=== PATIENT | male | born 1965 | race Caucasian/White ===

== ENCOUNTER 2017-06-01 07:30 | Inpatient (IN) | payer MEDICARE ==
--- NOTE | 2017-05-24 12:11 | HP ---
HISTORY AND PHYSICAL: DATE OF SURGERY: 06/01/17 DATE OF OFFICE VISIT: 05/22/17 SURGEON: Michelle Escobar MD.* (DICTATED BY MARY ALLEN) PROCEDURE: Left total knee arthroplasty. CHIEF COMPLAINT: Left knee pain. HISTORY OF PRESENT ILLNESS: Mr. Neff is a 52-year-old gentleman with complaints of left knee pain secondary to endstage osteoarthritis. He has failed conservative management and has elected to proceed with a left total knee arthroplasty, which is scheduled for 06/01/[address] Escobar. PAST MEDICAL HISTORY: Sleep apnea, hypertension, diabetes, and high cholesterol. PAST SURGICAL HISTORY: Multiple low back surgeries, hernia repair, tonsillectomy, right total knee arthroplasty, and a septoplasty. CURRENT MEDICATIONS: 1. Ipratropium bromide/albuterol sulphate inhaler. 2. Wellbutrin. 3. Cyclobenzaprine 4. Losartan potassium 100 mg daily. 5. Metformin 500 mg 2 tablets, dinner, 1 tablet with breakfast. 6. Famotidine 20 mg twice daily. 7. Metoprolol 50 mg daily. 8. Atorvastatin calcium 20 mg at bedtime. 9. Amlodipine 10 mg daily. 10. Morphine sulfate. 11. Aspirin 81 mg daily. 12. Multivitamin. 13. [place] 10/325 as needed. ALLERGIES: No known drug allergies. FAMILY HISTORY: Family history of diabetes, hypertension and cancer. SOCIAL HISTORY: This is a 52-year-old gentleman lives with a roommate, denies use of drugs. He does smoke. He is in the process of quitting. He states he is down to approximately 6 cigarettes a day, but he smokes for the last 30 years. REVIEW OF SYSTEMS: A complete 14-point review of systems was reviewed with the patient was positive for diabetes and sleep apnea. He denies history of DVT, PE , hepatitis C, or HIV. PHYSICAL EXAMINATION GENERAL: Well developed, well nourished in no acute distress. VITAL SIGNS: He stands 6 feet tall, weighs 225 pounds. Blood pressure 146/84, his heart rate is 80. HEENT: Normocephalic, atraumatic. NECK: Supple. No palpable lymph nodes. PULMONARY: Lungs are clear to auscultation bilaterally. CARDIAC: Regular rate and rhythm. Strong S1 and S2. ABDOMEN: Soft, nontender, nondistended. NEUROLOGICAL: Alert and oriented x3. MUSCULOSKELETAL: Left lower extremity, the skin is intact. There are no open wounds or abrasions. He has some moderate joint effusion and tenderness over the medial and lateral joint line, 10 to 120 degrees of flexion with patellofemoral crepitus, 2+ dorsalis pedis pulses. Intact sensation distally with 5/5 lower extremity strength. ASSESSMENT AND PLAN: Ms. Neff is a 52-year-old gentleman with endstage osteoarthritis of the left knee. He has failed conservative management and has elected to proceed with a left total knee arthroplasty which is scheduled for with Dr. Escobar. Dr. Escobar discussed the risks and benefits of the surgery at today's visit. All of his questions were answered. No medication was sent to his pharmacy today since he currently has a prescription for morphine and [place]. He will follow with Dr. Escobar 2 weeks after the surgery. MARY ALLEN [id number]/[facility] #: [id number] [place]
[~2017-06-01 07:30] MED LIST: Buffered Lidocaine 0.9% SYRIN* 5 ML/SYR SYRINGE INTRADERM ONE; DiMENhydriNATE IV* 50 MG/ML VIAL IV PUSH PRN; Famotidine IV* 10 MG/ML 2 ML (20 mg) IV ONE; Morphine INJ* 2 MG/ML 1 ML CARPUJECT IV PRN; PROCHLORPERAZINE INJ 5 MG/ML 2 ML VIAL IV PRN
[2017-06-01] MEDS ORDERED: Morphine INJ* 2 MG/ML 1 ML CARPUJECT IV PRN (11:39)
[2017-06-01] MEDS ORDERED: Ondansetron INJ* 2 MG/ML VIAL IV PRN (11:39)
[2017-06-01] MEDS ORDERED: Acetaminophen TAB* 325 MG PO PRN (11:39)
[2017-06-01] MEDS ORDERED: oxyCODONE/Acetamin 5/325 MG* TAB PO PRN (11:39)
[2017-06-01] MEDS ORDERED: Bisacodyl SUPP* 10 MG SUPP PR PRN (11:39)
[2017-06-01] MEDS ORDERED: diPHENhydraMINE IV* 50 MG/ML 1 ml VIAL (BENADRYL) IV PRN (11:39)
[2017-06-01] MEDS ORDERED: Polyethylene Glycol 3350* 17 GM PACKET PO PRN (11:39)
[2017-06-01] MEDS ORDERED: Famotidine IV* 10 MG/ML 2 ML (20 mg) ONE (11:49)
[2017-06-01] MEDS ORDERED: ceFAZolin 1 GM ADVAN(*) 1 GM ADDV.VIAL IVPB ONE (11:50)
[2017-06-01] MEDS ORDERED: Buffered Lidocaine 0.9% SYRIN* 5 ML/SYR SYRINGE ONE (11:50)
[2017-06-01] MEDS ORDERED: ceFAZolin 2 GM PREMIX (*) 2 GM/50 ML BAG IVPB ONE (11:50)
[2017-06-01] MEDS ORDERED: ceFAZolin 1 GM VIAL(*) 1 GM in NS 0.9% 50 ML* 50 ML IVPB SCH (12:00)
[2017-06-01] MEDS ORDERED: fentaNYL* 50 MCG/ML 5 ML VIAL (250 MCG VIAL) ONE (12:08)
[2017-06-01] MEDS ORDERED: KETAMINE HCL* 50 MG/ML 10 ML VIAL ONE (12:08)
[2017-06-01] MEDS ORDERED: Midazolam* 1 MG/ML 10 ML VIAL (10 MG) ONE (12:08)
[2017-06-01] MEDS ORDERED: Metoprolol Tartrate TAB* 25 MG ONE (12:19)
[2017-06-01] MEDS ORDERED: Morphine INJ* 10 MG/ML 1 ML CARPUJECT ONE ×3 (13:02→15:59)
[2017-06-01] MEDS ORDERED: Propofol* 10 MG/ML 20 ML BTL IV PUSH ONE (14:45)
[2017-06-01] MEDS ORDERED: Lidocaine 2% PF * 5 ML VIAL ONE (14:45)
[2017-06-01] MEDS ORDERED: Bupivacaine 0.5% SDV PF* 30 ML VIAL ONE (14:45)
[2017-06-01] MEDS ORDERED: Bupivacaine 0.25% SDV* 30 ML ONE (14:45)
[2017-06-01] MEDS ORDERED: Labetalol IV* 5 MG/ML 20 ML VIAL ONE (15:00)
[2017-06-01] MEDS ORDERED: fentaNYL* 50 MCG/ML 2 ML VIAL (100 MCG VIAL) ONE ×2 (15:59→17:45)
[2017-06-01] MEDS: fentaNYL* 50 MCG/ML 2 ML VIAL (100 MCG VIAL) IV PRN ×3 (16:02→18:09)
--- NOTE | 2017-06-01 17:08 | RAD ---
INDICATION: Left total knee replacement COMPARISON: May 22, 2017 TECHNIQUE: AP and lateral views were obtained. FINDINGS: There is interval left knee arthroplasty. Both femoral and tibial components appear well seated. There is no overlying cooling jacket. IMPRESSION: POSTOPERATIVE LEFT TOTAL KNEE REPLACEMENT.
[2017-06-01] MEDS ORDERED: Dextrose 50% Syringe 50 ML* 25 GM/50 ML SYRINGE IV PUSH PRN (18:55)
[2017-06-01] MEDS ORDERED: Morphine INJ* 2 MG/ML 1 ML SYRINGE (TWO MG - NEW SYRINGE VERSION) ONE (19:41)
--- NOTE | 2017-06-01 20:45 | CONS ---
CONSULTATION REPORT: DATE OF CONSULTATION: 06/01/17 CONSULTING PHYSICIAN: uT Dawn MD. PRIMARY CARE PHYSICIAN: Essie Cummings NP. PRIMARY ORTHOPEDIC SURGEON: Dr. Escobar. REASON FOR CONSULT: Medical comorbidity and management for a left total knee replacement surgery patient. HISTORY OF PRESENT ILLNESS: James Neff is a 52-year-old gentleman, PMH as below, who presented to Dr. Escobar's service for left total knee replacement surgery. Course was complicated by needle stick injury reportedly. The patient is currently quite sedated from perioperative anesthesia and unable to give a clear history other than the data involving his septoplasty 20 years ago. Does attest that he is in some degree of pain at the moment. PAST MEDICAL HISTORY: 1. Non-insulin dependent diabetes mellitus. 2. Hypertension. 3. Hyperlipidemia. 4. Formerly diagnosed with sleep apnea. 5. Status post tonsillectomy 20 years ago, which he states has resolved his condition, though no followup sleep studies since that time. PAST SURGICAL HISTORY: 1. Multiple low back surgeries. 2. Hernia repair. 3. Tonsillectomy. 4. Right total knee arthroscopy. 5. Septoplasty. HOME MEDICATIONS: Include per the chart: 1. Wellbutrin. 2. Flexeril. 3. Losartan 100 mg daily. 4. Metformin 500 mg p.o. with dinner and one tablet with breakfast. 5. Pepcid 20 mg b.i.d. 6. Metoprolol 50 mg daily. 7. Atorvastatin 20 mg q.h.s. 8. Amlodipine 10 mg daily. 9. Morphine sulfate. 10. Aspirin 81 mg daily. 11. Multivitamin as needed. 12. Ipratropium bromide/albuterol sulfate inhaler. ALLERGIES: No known drug allergies. FAMILY HISTORY: Diabetes, hypertension, and cancer. SOCIAL HISTORY: Reportedly living with roommate. Smokes 1 pack per day per chart, although more recently decreased to 6 cigarettes a day. Smokes for 30 years. REVIEW OF SYSTEMS: Not obtainable in current state. PHYSICAL EXAMINATION: General Appearance: No acute distress. Sleepy, arousable to a loud voice but then nodding off quickly in the setting of perioperative anesthesia. Vital Signs: Blood pressure 121/87, heart rate 85, saturating 97%, respiratory rate 16 on 10 L nasal cannula. HEENT: Normocephalic, atraumatic. Pulmonary: Anteriorly clear to auscultation bilaterally. No wheezing, rales or rhonchi. Cardiovascular: Regular rate and rhythm. No murmurs, rubs, or gallops. Abdomen: Soft, nontender. Obese. Extremities: Warm and well perfused. No peripheral edema. Neurologic: Sedated. Skin: No rashes. No lesions. Extremities: Also includes brace on the left knee and leg. LABORATORY DATA: No current labs other than glucose 117. ASSESSMENT AND PLAN: The patient is a 52-year-old male with past medical history, current smoker, [id number] diabetes mellitus, hypertension, hyperlipidemia, presenting without complication from a left total knee repair. For his diabetes management, we will put him on sliding scale insulin q.a.c., q.h.s., with [id number] testing. Hold his metformin 1000 mg at night and 500 mg with breakfast. For his high blood pressure, currently well controlled, we will continue his metoprolol tartrate 50 mg q.a.m. in the morning. For DVT prophylaxis, orthopedic services started warfarin 6 mg daily with enoxaparin 40 mg daily bridging. Continue his atorvastatin 20 mg daily for hyperlipidemia. Defer amlodipine 10 mg to morning. The patient denies current obstructive sleep apnea and apparently did not follow with recommendations on 03/22/17 visit to follow up with sleep study. Of note , one of the surgeons may have had a fingerstick in the OR and hepatitis B, C, HIV testing has taken place. The patient will need to continue PT/OT. Should be on nicotine patch for his 6 cigarettes a day smoking habit. [id number]/[facility] #: [id number] [facility]
[2017-06-01 20:55] LABS: Rapid HIV INT CONT QC Line Present; Rapid HIV Kit Lot# H046007
[2017-06-01] MEDS ORDERED: metFORMIN* 500 MG TAB PO SCH (21:00)
[2017-06-01] MEDS ORDERED: Warfarin TAB(*) 6 MG PO ONE (21:30)
[2017-06-01] MEDS: Atorvastatin* 20 MG TAB PO SCH (22:04)
[2017-06-01] MEDS: Insulin LISPRO* 1 UNITS UNIT SUBCUT SCH (22:26)
[2017-06-01] MEDS: Docusate CAP* 100 MG PO SCH (22:37)
[2017-06-01] MEDS: Magnesium Hydroxide LIQ* 30 ML UDC PO SCH (22:38)
[2017-06-01] MEDS: ceFAZolin 1 GM in Dextrose (*) 1 GM/50 ML BAG IVPB SCH (22:44)
[2017-06-01] MEDS ORDERED: Morphine INJ* 10 MG/ML 1 ML CARPUJECT IV PRN (23:00)
[2017-06-02] MEDS: Morphine INJ* 2 MG/ML 1 ML SYRINGE (TWO MG - NEW SYRINGE VERSION) IV PRN ×4 (00:56→11:47)
[2017-06-02] MEDS: oxyCODONE/Acetamin 5/325 MG* TAB PO PRN ×5 (05:18→23:28)
[2017-06-02 05:41] LABS: Hematocrit 34 % (42-52); Hemoglobin 11.4 g/dl (14.0-18.0)
[2017-06-02 05:56] LABS: BUN/Creatinine Ratio 16.9 (8-20); EGFR African American 165.9 (>60); Potassium 3.7 mmol/L (3.5-5.0)
[2017-06-02] MEDS: ceFAZolin 1 GM in Dextrose (*) 1 GM/50 ML BAG IVPB SCH ×3 (06:18→23:29)
[2017-06-02] MEDS: amLODIPine TAB* 5 MG PO SCH (07:29)
[2017-06-02] MEDS: Nicotine PATCH 21 MG/24 HR* PATCH TRANSDERM SCH (07:29)
[2017-06-02] MEDS: Magnesium Hydroxide LIQ* 30 ML UDC PO SCH ×2 (07:29→20:37)
[2017-06-02] MEDS: Metoprolol Tartrate TAB* 50 mg PO SCH (07:29)
[2017-06-02] MEDS: Docusate CAP* 100 MG PO SCH ×2 (07:29→20:37)
[2017-06-02] MEDS: Losartan TAB* 25 MG PO SCH (07:29)
[2017-06-02] MEDS: Famotidine TAB* 20 MG PO SCH (07:29)
[2017-06-02] MEDS: Vitamin THERAPEUTIC TAB PO SCH (07:30)
[2017-06-02] MEDS: Insulin LISPRO* 1 UNITS UNIT SUBCUT SCH ×4 (08:13→20:45)
[2017-06-02] MEDS: Morphine TAB Extended Release (*) 30 MG TAB.ER PO SCH ×2 (08:13→20:43)
[2017-06-02] MEDS: Simethicone TAB* 80 MG TAB.CHEW PO PRN ×2 (08:14→20:54)
[2017-06-02] MEDS: Cyclobenzaprine TAB* 10 MG PO PRN (08:15)
[2017-06-02] MEDS ORDERED: Nicotine PATCH 21 MG/24 HR* PATCH SCH (09:00)
[2017-06-02] MEDS: Enoxaparin(*) 40 MG/0.4 ML SYR SUBCUT SCH (11:42)
--- NOTE | 2017-06-02 12:20 | PN ---
Progress Note - Progress Note Date of Service: 06/02/17 SOAP: Subjective: 52 y/o male s/p l TKA 06/[address] Escobar. Patient complains of extreme pain in L knee, medications changed this morning. Patient resting upon arrival into room. Worked poorly with PT this AM, states he "almost punched her". Patient educated not appropriate behavior. VSS, afebrile. Objective: General- Well appearing, NAD, resting comfortably in chair, AO MSK- Surgical dressing intact, drain removed, no odor, drainage noted, + DF/PF b/l, minimal edema b/l LEs, neg homans b/l, SITLT b/l. Vital Signs Temp 98.3 F 06/02/17 07:43 Pulse 96 06/02/17 07:43 Resp 16 06/02/17 11:47 BP 173/95 06/02/17 07:43 Pulse Ox 96 06/02/17 07:43 Intake & Output 06/01/17 06/02/17 06/02/17 18:59 06:59 18:59 Intake Total 2100 1748 811 Output Total 300 1975 500 Balance 1800 -227 311 Weight 128.367 kg Intake: IV Fluids 2100 1038 233 3 GM ANCEF 100 ABX - CEFAZOLIN 58 LR 2000 980 233 IVPB 58 ABX - CEFAZOLIN 58 Oral 710 520 Output: Urine 300 500 [place] 1975 Assessment: Stable 52 y/o male s/p l TKA 06/[address] Escobar. Plan: - Pain medication- Regimen changed this AM, with morphine ER 30mg BID, oxycodone, flexeril. Continue to monitor for improvement, may need to change if pain continues - DVT prophyl- INR subtherap, 8mg coumadin tonight, continue lovenox - Continue to work with PT - Rehabiliation placement recs sent by for possible rehab Monday otherwise home over depending on PT Active Medications Generic Name Dose Route Start Last Admin Trade Name Freq PRN Reason Stop Dose Admin Acetaminophen 650 mg 06/01/17 11:39 06/01/17 22:02 Tylenol Tab* PO 650 mg Q4H PRN Administration FEVER/PAIN Amlodipine Besylate 10 mg 06/02/17 09:00 06/02/17 07:29 Norvasc Tab* PO 10 mg QAM DAVID Administration Atorvastatin Calcium 20 mg 06/01/17 18:00 06/01/17 22:04 Lipitor* PO Not Given QPM DAVID Bisacodyl 10 mg 06/01/17 11:39 Dulcolax Supp* [place] DAILY PRN constipation Cyclobenzaprine HCl 10 mg 06/02/17 07:35 06/02/17 08:15 Flexeril Tab* PO 10 mg TID PRN Administration SPASMS - MUSCLE Dextrose 12.5 gm 06/01/17 18:55 D50w Syringe 50 Ml* IV PUSH .FOR FS < 60 - SS PRN FS < 60 Diphenhydramine HCl 25 mg 06/01/17 11:39 Benadryl Iv* IV Q6H PRN itching Docusate Sodium 100 mg 06/01/17 21:00 06/02/17 07:29 Colace Cap* PO 100 mg BID DAVID Administration Enoxaparin Sodium 40 mg 06/02/17 12:00 06/02/17 11:42 Lovenox(*) SUBCUT 40 mg Q24H DAVID Administration Famotidine 20 mg 06/02/17 09:00 06/02/17 07:29 Pepcid Tab* PO 20 mg QAM DAVID Administration Lactated Ringer's 1,000 mls @ 100 mls/hr 06/01/17 12:00 06/02/17 06:21 Lactated Ringers 1000 Ml Bag* IV 100 mls/hr PER RATE DAVID Administration Cefazolin Sodium/Dextrose 1 gm in 50 mls @ 200 mls/hr 06/01/17 22:30 06:18 Kefzol 1 Gm In Dextrose Duplex (*) IVPB 200 mls/hr 0630,1430,2230 DAVID Administration Insulin Human Lispro 0 units 06/01/17 21:00 06/02/17 08:13 Humalog* SUBCUT 3 units ACHS DAVID Administration Protocol Lactulose 30 ml 06/01/17 21:00 06/02/17 07:29 Lactulose* PO 30 ml BID DAVID Administration Losartan Potassium 100 mg 06/02/17 09:00 06/02/17 07:29 Cozaar Tab* PO 100 mg QAM DAVID Administration Magnesium Hydroxide 30 ml 06/01/17 21:00 06/02/17 07:29 Milk Of Magnesia Liq* PO 30 ml BID DAVID Administration Metoprolol Tartrate 50 mg 12/01/17 09:00 06/02/17 07:29 Lopressor Tab* PO 50 mg QAM DAVID Administration Morphine Sulfate 2 mg 06/01/17 22:11 06/02/17 11:47 Morphine Inj (Syringe)* IV 2 mg Q2H PRN Administration PAIN Morphine Sulfate 30 mg 06/02/17 08:00 06/02/17 08:13 Ms Contin(*) PO 30 mg Q12H DAVID Administration Multivitamins 1 tab 06/02/17 09:00 06/02/17 07:30 Theragran Tab* PO 1 tab DAILY DAVID Administration Nicotine 1 patch 06/02/17 09:00 06/02/17 07:29 Nicotine Patch 21 Mg/24 Hr* TRANSDERM 1 patch DAILY DAVID Administration Ondansetron HCl 4 mg 06/01/17 11:39 Zofran Inj* IV Q6H PRN nausea Oxycodone HCl 10 mg 06/01/17 11:39 Roxycodone Tab* PO Q4H PRN PAIN - MODERATE TO SEVERE Oxycodone/Acetaminophen 1 tab 06/01/17 11:39 Percocet 5/325 Tab* PO Q4H PRN PAIN Oxycodone/Acetaminophen 2 tab 06/01/17 11:39 06/02/17 09:31 Percocet 5/325 Tab* PO 2 tab Q4H PRN Administration PAIN Pharmacy Profile Note 1 note 06/02/17 17:00 Coumadin Daily Reminder* FOLLOW UP [facility] Pharmacy Profile Note 1 note 06/01/17 21:55 Nicotine Patch Removal Note* PATCH OFF [facility] Polyethylene Glycol/Electrolytes 17 gm 06/01/17 11:39 Miralax* PO DAILY PRN Constipation Simethicone 80 mg 06/02/17 08:02 06/02/17 08:14 Mylicon Tab* PO 80 mg QID PRN Administration NOT STATED
--- NOTE | 2017-06-02 14:30 | PN ---
Subjective Date of Service: 06/02/17 Interval History: Patient resting when entered room but complains of 10/10 knee pain. Also complains of abdominal pain and bloating, passing large amounts of flatus with moderate relief. Urinating without difficulty. No complaints of CP, SOB, N/V, F/ C or other pain. Family History: Unchanged from Admission Social History: Unchanged from Admission Past Medical History: Unchanged from Admission Objective Active Medications: Acetaminophen (Tylenol Tab*) 650 mg PO Q4H PRN PRN Reason: FEVER/PAIN Last Admin: 06/01/17 22:02 Dose: 650 mg Amlodipine Besylate (Norvasc Tab*) 10 mg PO QAM [facility] Last Admin: 06/02/17 07:29 Dose: 10 mg Atorvastatin Calcium (Lipitor*) 20 mg PO QPM [facility] Last Admin: 06/01/17 22:04 Dose: Not Given Bisacodyl (Dulcolax Supp*) 10 mg [place] DAILY PRN PRN Reason: constipation Cyclobenzaprine HCl (Flexeril Tab*) 10 mg PO TID PRN PRN Reason: SPASMS - MUSCLE Last Admin: 06/02/17 08:15 Dose: 10 mg Dextrose (D50w Syringe 50 Ml*) 12.5 gm IV PUSH .FOR FS < 60 - SS PRN PRN Reason: FS < 60 Diphenhydramine HCl (Benadryl Iv*) 25 mg IV Q6H PRN PRN Reason: itching Docusate Sodium (Colace Cap*) 100 mg PO BID [facility] Last Admin: 06/02/17 07:29 Dose: 100 mg Enoxaparin Sodium (Lovenox(*)) 40 mg SUBCUT Q24H [facility] Last Admin: 06/02/17 11:42 Dose: 40 mg Famotidine (Pepcid Tab*) 20 mg PO QAM [facility] Last Admin: 06/02/17 07:29 Dose: 20 mg Lactated Ringer's (Lactated Ringers 1000 Ml Bag*) 1,000 mls @ 100 mls/hr IV PER RATE [facility] Last Admin: 06/02/17 06:21 Dose: 100 mls/hr Cefazolin Sodium/Dextrose (Kefzol 1 Gm In Dextrose Duplex (*)) 1 gm in 50 mls @ 200 mls/hr IVPB 0630,1430,2230 [facility] Last Admin: 06/02/17 06:18 Dose: 200 mls/hr Insulin Human Lispro (Humalog*) 0 units SUBCUT ACHS [facility] PRN Reason: Protocol Last Admin: 06/02/17 12:34 Dose: 3 units Lactulose (Lactulose*) 30 ml PO BID [facility] Last Admin: 06/02/17 07:29 Dose: 30 ml Losartan Potassium (Cozaar Tab*) 100 mg PO QAM [facility] Last Admin: 06/02/17 07:29 Dose: 100 mg Magnesium Hydroxide (Milk Of Magnesia Liq*) 30 ml PO BID [facility] Last Admin: 06/02/17 07:29 Dose: 30 ml Metoprolol Tartrate (Lopressor Tab*) 50 mg PO QAM [facility] Last Admin: 06/02/17 07:29 Dose: 50 mg Morphine Sulfate (Morphine Inj (Syringe)*) 2 mg IV Q2H PRN PRN Reason: PAIN Last Admin: 06/02/17 11:47 Dose: 2 mg Morphine Sulfate (Ms Contin(*)) 30 mg PO Q12H [facility] Last Admin: 06/02/17 08:13 Dose: 30 mg Multivitamins (Theragran Tab*) 1 tab PO DAILY [facility] Last Admin: 06/02/17 07:30 Dose: 1 tab Nicotine (Nicotine Patch 21 Mg/24 Hr*) 1 patch TRANSDERM DAILY [facility] Last Admin: 06/02/17 07:29 Dose: 1 patch Ondansetron HCl (Zofran Inj*) 4 mg IV Q6H PRN PRN Reason: nausea Oxycodone HCl (Roxycodone Tab*) 10 mg PO Q4H PRN PRN Reason: PAIN - MODERATE TO SEVERE Oxycodone/Acetaminophen (Percocet 5/325 Tab*) 1 tab PO Q4H PRN PRN Reason: PAIN Oxycodone/Acetaminophen (Percocet 5/325 Tab*) 2 tab PO Q4H PRN PRN Reason: PAIN Last Admin: 06/02/17 13:21 Dose: 2 tab Pharmacy Profile Note (Coumadin Daily Reminder*) 1 note FOLLOW UP 1700 [facility] Pharmacy Profile Note (Nicotine Patch Removal Note*) 1 note PATCH OFF 2100 [facility] Polyethylene Glycol/Electrolytes (Miralax*) 17 gm PO DAILY PRN PRN Reason: Constipation Simethicone (Mylicon Tab*) 80 mg PO QID PRN PRN Reason: NOT STATED Last Admin: 06/02/17 08:14 Dose: 80 mg Vital Signs 06/01/17 06/01/17 06/01/17 15:43 15:45 15:50 Temperature 98.1 F Pulse Rate 88 88 86 Respiratory 16 14 11 Rate Blood Pressure 118/98 112/88 133/89 (mmHg) O2 Sat by Pulse 90 91 91 Oximetry 06/01/17 06/01/17 06/01/17 15:55 16:00 16:02 Temperature Pulse Rate 87 Respiratory 14 14 14 Rate Blood Pressure 108/91 (mmHg) O2 Sat by Pulse 91 Oximetry 06/01/17 06/01/17 06/01/17 16:15 16:43 17:27 Temperature Pulse Rate 85 90 Respiratory 16 14 18 Rate Blood Pressure 121/87 135/77 (mmHg) O2 Sat by Pulse 97 95 Oximetry 06/01/17 06/01/17 06/01/17 17:42 17:51 18:00 Temperature Pulse Rate 95 94 94 Respiratory 18 18 18 Rate Blood Pressure 138/96 138/97 128/89 (mmHg) O2 Sat by Pulse 98 98 95 Oximetry 06/01/17 06/01/17 06/01/17 18:09 18:25 18:43 Temperature 97.9 F Pulse Rate 92 96 Respiratory 18 18 20 Rate Blood Pressure 128/89 159/98 (mmHg) O2 Sat by Pulse 95 98 Oximetry 06/01/17 06/01/17 06/01/17 19:45 19:58 20:15 Temperature 99.8 F Pulse Rate 99 Respiratory 20 20 20 Rate Blood Pressure 151/88 (mmHg) O2 Sat by Pulse 96 Oximetry 06/01/17 06/01/17 06/01/17 20:43 21:00 22:43 Temperature 97.9 F 98.4 F Pulse Rate 101 100 Respiratory 20 16 20 Rate Blood Pressure 159/92 169/97 (mmHg) O2 Sat by Pulse 97 Oximetry 06/02/17 06/02/17 06/02/17 00:53 00:56 02:05 Temperature 97.3 F Pulse Rate 97 Respiratory 16 18 18 Rate Blood Pressure 164/85 (mmHg) O2 Sat by Pulse 100 Oximetry 06/02/17 06/02/17 06/02/17 03:50 03:56 05:18 Temperature 98.1 F Pulse Rate 93 Respiratory 18 16 18 Rate Blood Pressure 157/87 (mmHg) O2 Sat by Pulse 97 Oximetry 06/02/17 06/02/17 06/02/17 05:34 05:55 07:26 Temperature Pulse Rate Respiratory 18 16 Rate Blood Pressure (mmHg) O2 Sat by Pulse 97 Oximetry 06/02/17 06/02/17 06/02/17 07:43 08:13 08:15 Temperature 98.3 F Pulse Rate 96 Respiratory 18 18 18 Rate Blood Pressure 173/95 (mmHg) O2 Sat by Pulse 96 Oximetry 06/02/17 06/02/17 06/02/17 09:31 11:47 13:21 Temperature Pulse Rate Respiratory 16 16 16 Rate Blood Pressure (mmHg) O2 Sat by Pulse Oximetry 06/02/17 13:50 Temperature Pulse Rate Respiratory Rate Blood Pressure (mmHg) O2 Sat by Pulse 96 Oximetry Oxygen Devices in Use Now: None Appearance: Patient is a 52yo male who appears stated age and is sitting in the bed in [facility]. Eyes: No Scleral Icterus, PERRLA Ears/Nose/Mouth/Throat: NL Teeth, Lips, Gums, Clear Oropharnyx, Mucous Membranes Moist Neck: NL Appearance and Movements; NL JVP, Trachea Midline Respiratory: Symmetrical Chest Expansion and Respiratory Effort, Clear to Auscultation Cardiovascular: NL Sounds; No Murmurs; No JVD, RRR, No Edema, - - Pulses 2+ and symmterical in B/L LE and radial areas. Abdominal: No Hepatosplenomegaly, - - Hyperactive BS consisting of clicks and gurgles. Distended and diffusely tender without guarding. Lymphatic: No Cervical Adenopathy Extremities: No Edema, No Clubbing, Cyanosis Skin: - - Knee covered with bulky dressing and cold pack. Neurological: Alert and Oriented x 3, NL Sensation, NL Muscle Strength and Tone Result Diagrams: 06/02/17 05:18 06/02/17 05:18 Assess/Plan/Problems-Billing Assessment: Patient is a 52yo male with a PMH significant for HTN, HLD and NIDDM II who is POD #1 after an elective LTHA. Patient is doing well and has no complication. - Patient Problems (1) Postoperative state Current Visit: Yes Status: Acute Code(s): Z98.890 - OTHER SPECIFIED POSTPROCEDURAL STATES SNOMED Code(s): 08357600 Comment: POD #1. Pain 10/10 without obvious signs of distress. Pain control per primary team. Patient has an intrathecal morphine pump which is managed by pain management and was most recently refilled on 05/24. Urinating and passing flatus without difficulty. PT/OT. (2) Diabetes Current Visit: No Status: Chronic Code(s): E11.9 - TYPE 2 DIABETES MELLITUS WITHOUT COMPLICATIONS SNOMED Code(s): 17306017 Comment: Continue lispro SSI coverage, hold metformin. Moderate control. Resume metformin at D/C. (3) HLD (hyperlipidemia) Current Visit: Yes Status: Acute Code(s): E78.5 - HYPERLIPIDEMIA, UNSPECIFIED SNOMED Code(s): 68883931 Comment: Continue lipitor. (4) Hypertension Current Visit: No Status: Chronic Code(s): I10 - ESSENTIAL (PRIMARY) HYPERTENSION SNOMED Code(s): 18547067 Comment: Better controlled. Continue Amlodopine, Metoprolol. (5) DVT prophylaxis Current Visit: No Status: Acute Code(s): NPM3042 - SNOMED Code(s): 037686761 Comment: Heparin SQ with bridge to warfarin per ortho. (6) Full code status Current Visit: No Status: Acute Code(s): Z78.9 - OTHER SPECIFIED HEALTH STATUS SNOMED Code(s): 088105793 Status and Disposition: POD #1, Home or rehab dictated by clinical course.
[2017-06-02] MEDS ORDERED: Warfarin TAB(*) 4 MG PO ONE (17:00)
[2017-06-02] MEDS: Atorvastatin* 20 MG TAB PO SCH (17:13)
[2017-06-02] MEDS: Nicotine Patch Removal NOTE PATCH OFF SCH (20:53)
[2017-06-03] MEDS: oxyCODONE/Acetamin 5/325 MG* TAB PO PRN ×5 (03:26→23:25)
--- NOTE | 2017-06-03 03:52 | OP ---
OPERATIVE REPORT: DATE OF OPERATION: 06/01/17 DATE OF : 65 ATTENDING SURGEON: Michelle Escobar MD ELECTRICAL SUPERVISOR: MARY Bañuelos Ms. Billings did help throughout the procedure with preparation of the leg, wound retraction, and herberth pulation of the knee as well as wound closure. ANESTHESIOLOGIST: Dr. Hernandez. ANESTHESIA: General with adductor nerve block. PRE-OP DIAGNOSIS: Severe end-stage degenerative osteoarthritis of the left knee joint. POST-OP DIAGNOSIS: Severe end-stage degenerative osteoarthritis of the left knee joint. OPERATIVE PROCEDURE: Left total knee arthroplasty. BRIEF HISTORY/INDICATION: Mr. Neff is a 52-year-old gentleman with years of increasingly severe left knee pain. Radiographs showed [id number] arthritis. He had failed conservative treatment wit h anti-inflammatories, pain medications, intraarticular injections, and physical therapy. Due to dec reased quality of life and continued pain, the patient elected to undergo a left total knee arthropla sty. Informed consent was obtained from the patient. He understood the risks of the surgery included but were not limited to bleeding, infection, damage to nearby structures, continued pain, need for f urther surgery, intraoperative fracture, nerve palsy, hardware failure or loosening, knee stiffness, loss of motion, stroke, heart attack, blood clot, and . He wished to proceed. TOURNIQUET TIME: 68 minutes. ESTIMATED BLOOD LOSS: 400 cc. COMPLICATIONS: None. SPECIMEN: Synovitis sent to Pathology for evaluation for PVNS, bone and cartilage from the left knee joint sent to Pathology as well. HARDWARE USED: This is cemented Nina [employer] Nephew total knee arthroplasty hardware. Two packages of S implex bone cement were used. For the femur, a size 6 left Oxinium Legion posterior stabilized femor al component. For the tibia, a Paty II left tibial baseplate size 6. For the insert, an 11 mm po sterior stabilized articular insert size 5/6 and for the patella, 35, 3-peg all poly patella. INTRAOPERATIVE FINDINGS: Intraoperatively, the patient was noted to have severe end-stage arthritis with tricompartmental loss of cartilage and extensive osteophyte formation. The patient had 15-degre e flexion deformity and 12-degree varus deformity preoperatively. These were corrected to within nor mal limits. DESCRIPTION OF PROCEDURE: Mr. Neff was identified in the preanesthesia unit. His left lower extr emity was marked as the correct operative site. Informed consent was signed and placed in the chart. The patient was taken to the operating room and placed under general anesthesia with an adductor ne rve block. Holden catheter was placed. Tourniquet was placed on the left thigh. Left lower extremit y was prepped and draped in the usual sterile fashion. Preop time-out was made to correctly identify the patient's side and site. Appropriate perioperative antibiotics were given within 1 hour of inci rowdy. Tourniquet was inflated. A 15-cm midline incision was made with a 10 blade and carried down to the e xtensor mechanism. New 10 blade was used to make a standard medial parapatellar arthrotomy. There w ere copious amounts of clear yellow joint fluid. There was copious amounts of synovitis with small p ebble like appearance consistent with possible PVNS or pigmented villonodular synovitis. This synovi tis was excised carefully with electrocautery and sent to Pathology. Next, the electrocautery was us ed to subperiosteally elevate soft tissue off the superomedial tibia to the midsagittal plane. Media l tibial plateau osteophytes were carefully removed. The knee was flexed up. Anterior horn of the l ateral meniscus and the ACL were sharply released. A drill was used to enter the distal femur. Intra medullary distal femoral cutting guide was pinned on the distal femur. Oscillating saw was used to ma ke the distal femoral cut. External rotation guide was pinned on the distal femur and the distal fem ur was sized to a size 6. A size 6 multi-cutting jig was pinned on the distal femur. Oscillating sa w was used to make the appropriate 4 chamfer cuts. The PCL was completely released. Tibia was subluxed anteriorly. Extramedullary tibial cutting guide was pinned on the proximal tibia. Oscillating saw was used to make the proximal tibial cut perpendi cular to the mechanical axis of the tibia. The bone was carefully removed. The knee was brought out into full extension. Spacer block had good fit. Medial and lateral ligamentous balancing was appropr iate. There was satisfactory flexion and extension gap balancing. The knee was flexed up. Lamina oyster cultivator was placed both medially and laterally. Any remaining menisc us was carefully removed using electrocautery. Curved osteotome was used to remove posterior osteoph ytes. A tibial tray and drop olivia were placed to once again confirm satisfactory tibial cut. This wa s confirmed. A trial size 6 left femoral component was impacted on to the distal femur and had excel lent fit. The box for the posterior stabilized implant was prepared using a reamer and box cut osteo tome. Size 6 tibial tray and an 11-mm insert trial were chosen and these were placed. The knee was taken through full range of motion and had full extension to 130 degrees of flexion with good patello femoral tracking. The patella was everted. 9 mm of patellar bone and cartilage was carefully removed using an oscillating saw. The patella was sized to a size 35. Three peg holes were drilled with a size 35 guide. Trial 35 patella was placed and the knee was taken through a range of motion. There was satisfactory patellofemoral tracking. All trials were carefully removed. The tibia was subluxed anteriorly and sized to a size 6. Proxima l tibia was prepared using a size-6 keel punch. All bony cut surfaces were copiously irrigated with sterile saline and dried. Final implants were cemented into place starting with the tibia, followed by the femur, and last the patella. An 11-mm insert trial was placed while the knee was brought into full extension. Tourniquet was turned down at 68 minutes. The cement was allowed to fully cure. T he knee was irrigated with sterile saline. Electrocautery was used to obtain meticulous hemostasis. Once the cement had fully cured, the insert trial was removed. Any extra cement was carefully remov ed from around the implants and capsule. Final insert chosen was an 11-mm posterior stabilized artic ular insert. This was locked into position on the tibial tray. Stability of the insert was checked a nd rechecked and noted to be stable. Extensor mechanism was closed using interrupted #1 Vicryls over a medium Hemovac drain. The rest of the incision was closed in a layered fashion using 0 and 2-0 Vicryls. Skin was closed using running 3-0 nylon suture. The incision was covered with Xeroform, 4x4s and Webril. Iker wrap and cold pack w ere placed over this. The patient's anesthesia was reversed without difficulty. He was taken to the PACU in stable conditi on. Intended weightbearing will be weightbearing as tolerated. Intended DVT prophylaxis will be Coumadin with a Lovenox bridge. [id number]/[facility] #: [id number]
[2017-06-03] MEDS: Simethicone TAB* 80 MG TAB.CHEW PO PRN ×3 (04:20→18:53)
[2017-06-03 05:33] LABS: Hematocrit 33 % (42-52); Hemoglobin 11.2 g/dl (14.0-18.0); Mean Platelet Volume 9 um3 (7.4-10.4)
[2017-06-03] MEDS: ceFAZolin 1 GM in Dextrose (*) 1 GM/50 ML BAG IVPB SCH (06:23)
[2017-06-03] MEDS: Nicotine PATCH 21 MG/24 HR* PATCH TRANSDERM SCH ×2 (06:34→08:36)
[2017-06-03] MEDS: Insulin LISPRO* 1 UNITS UNIT SUBCUT SCH ×4 (08:28→21:04)
[2017-06-03] MEDS: Losartan TAB* 25 MG PO SCH (08:29)
[2017-06-03] MEDS: Vitamin THERAPEUTIC TAB PO SCH (08:30)
[2017-06-03] MEDS: Famotidine TAB* 20 MG PO SCH (08:30)
[2017-06-03] MEDS: amLODIPine TAB* 5 MG PO SCH (08:30)
[2017-06-03] MEDS: Morphine TAB Extended Release (*) 30 MG TAB.ER PO SCH ×2 (08:30→20:12)
[2017-06-03] MEDS: Docusate CAP* 100 MG PO SCH ×2 (08:30→21:04)
[2017-06-03] MEDS: Metoprolol Tartrate TAB* 50 mg PO SCH (08:30)
[2017-06-03] MEDS: Magnesium Hydroxide LIQ* 30 ML UDC PO SCH ×2 (08:32→21:04)
--- NOTE | 2017-06-03 09:03 | PN ---
Progress Note - Progress Note Date of Service: 06/03/17 SOAP: Subjective: Pt. is alert, reports mod pain. Objective: LLE - dressing changed, inc c/d/i. mod effusion. distally nvi. Vital Signs: Temp Pulse Resp BP Pulse Ox 98.4 F 106 20 169/101 94 06/03/17 07:34 06/03/17 07:34 06/03/17 08:32 06/03/17 07:34 06/03/17 07:34 Laboratory Results - last 24 hr 06/01/17 06/02/17 06/02/17 17:06 11:47 16:43 Hgb Hct Plt Count MPV INR (Anticoag Therapy) POC Glucose (mg/dL) 151 H 138 H Hepatitis B Antibody Reactive Hep Bs Antigen Nonreactive Hep Bs Antibody, Quant 646.09 Hepatitis C Antibody Nonreactive HIV 1&2 Antibody Nonreactive 06/02/17 06/03/17 06/03/17 20:35 04:53 04:53 Hgb 11.2 L Hct 33 L Plt Count 159 MPV 9 INR (Anticoag Therapy) 1.23 H POC Glucose (mg/dL) 133 H Hepatitis B Antibody Hep Bs Antigen Hep Bs Antibody, Quant Hepatitis C Antibody HIV 1&2 Antibody 06/03/17 07:41 Hgb Hct Plt Count MPV INR (Anticoag Therapy) POC Glucose (mg/dL) 112 H Hepatitis B Antibody Hep Bs Antigen Hep Bs Antibody, Quant Hepatitis C Antibody HIV 1&2 Antibody Assessment: 52 yo M pod 2 s/p LTKA Plan: wbat lle pt/ot lovenox today - 8 mg coumadin tonight plan d/c to home with vns 06/04
[2017-06-03] MEDS: Enoxaparin(*) 40 MG/0.4 ML SYR SUBCUT SCH (12:01)
[2017-06-03] MEDS: oxyCODONE TAB* 5 MG TAB PO PRN ×3 (12:01→21:03)
[2017-06-03] MEDS ORDERED: Albuterol/Ipratropium NEB.SOL* Albuterol 2.5 MG/Ipratropium 0.5 MG 3 ML INH PRN (13:12)
--- NOTE | 2017-06-03 14:42 | PN ---
Subjective Date of Service: 06/03/17 Interval History: Patient complains of diarrhea and bloating. Patient usually has only one BM at home daily. Having multiple loose stools daily without blood or black material. Also passing significant flatus, no relief with simethicone. Patient's pain moderately controlled. Patient denies dizziness, CP, SOB, N/V, Abdominal pain, dysuria, F/C, or other pain. Patient states he takes nebulizer at home BID but cannot say what type of nebulizer it is. Family History: Unchanged from Admission Social History: Unchanged from Admission Past Medical History: Unchanged from Admission Objective Active Medications: Acetaminophen (Tylenol Tab*) 650 mg PO Q4H PRN PRN Reason: FEVER/PAIN Last Admin: 06/01/17 22:02 Dose: 650 mg Albuterol/Ipratropium (Duoneb (Albuterol 2.5 Mg/Ipratropium 0.5 Mg)) 1 neb INH Q6H PRN PRN Reason: SOB/WHEEZING Amlodipine Besylate (Norvasc Tab*) 10 mg PO QAM [facility] Last Admin: 06/03/17 08:30 Dose: 10 mg Atorvastatin Calcium (Lipitor*) 20 mg PO QPM [facility] Last Admin: 06/02/17 17:13 Dose: 20 mg Bisacodyl (Dulcolax Supp*) 10 mg GA DAILY PRN PRN Reason: constipation Cyclobenzaprine HCl (Flexeril Tab*) 10 mg PO TID PRN PRN Reason: SPASMS - MUSCLE Last Admin: 06/02/17 08:15 Dose: 10 mg Dextrose (D50w Syringe 50 Ml*) 12.5 gm IV PUSH .FOR FS < 60 - SS PRN PRN Reason: FS < 60 Diphenhydramine HCl (Benadryl Iv*) 25 mg IV Q6H PRN PRN Reason: itching Docusate Sodium (Colace Cap*) 100 mg PO BID [facility] Last Admin: 06/03/17 08:30 Dose: 100 mg Enoxaparin Sodium (Lovenox(*)) 40 mg SUBCUT Q24H [facility] Last Admin: 06/03/17 12:01 Dose: 40 mg Famotidine (Pepcid Tab*) 20 mg PO QAM [facility] Last Admin: 06/03/17 08:30 Dose: 20 mg Insulin Human Lispro (Humalog*) 0 units SUBCUT ACHS DAVID PRN Reason: Protocol Last Admin: 06/03/17 12:17 Dose: Not Given Lactobacillus Rhamnosus (Culturelle*) 1 cap PO BID [facility] Lactulose (Lactulose*) 30 ml PO BID [facility] Last Admin: 06/03/17 08:32 Dose: 30 ml Losartan Potassium (Cozaar Tab*) 100 mg PO QAM [facility] Last Admin: 06/03/17 08:29 Dose: 100 mg Magnesium Hydroxide (Milk Of Magnesia Liq*) 30 ml PO BID [facility] Last Admin: 06/03/17 08:32 Dose: 30 ml Metoprolol Tartrate (Lopressor Tab*) 50 mg PO QAM [facility] Last Admin: 06/03/17 08:30 Dose: 50 mg Morphine Sulfate (Morphine Inj (Syringe)*) 2 mg IV Q2H PRN PRN Reason: PAIN Last Admin: 06/02/17 11:47 Dose: 2 mg Morphine Sulfate (Ms Contin(*)) 30 mg PO Q12H [facility] Last Admin: 06/03/17 08:30 Dose: 30 mg Multivitamins (Theragran Tab*) 1 tab PO DAILY [facility] Last Admin: 06/03/17 08:30 Dose: 1 tab Nicotine (Nicotine Patch 21 Mg/24 Hr*) 1 patch TRANSDERM DAILY [facility] Last Admin: 06/03/17 08:36 Dose: Not Given Ondansetron HCl (Zofran Inj*) 4 mg IV Q6H PRN PRN Reason: nausea Oxycodone HCl (Roxycodone Tab*) 10 mg PO Q4H PRN PRN Reason: PAIN - MODERATE TO SEVERE Last Admin: 06/03/17 12:01 Dose: 10 mg Oxycodone/Acetaminophen (Percocet 5/325 Tab*) 1 tab PO Q4H PRN PRN Reason: PAIN Oxycodone/Acetaminophen (Percocet 5/325 Tab*) 2 tab PO Q4H PRN PRN Reason: PAIN Last Admin: 06/03/17 14:31 Dose: 2 tab Pharmacy Profile Note (Coumadin Daily Reminder*) 1 note FOLLOW UP 1700 [facility] Last Admin: 06/02/17 17:15 Dose: 1 note Pharmacy Profile Note (Nicotine Patch Removal Note*) 1 note PATCH OFF 2100 [facility] Last Admin: 06/02/17 20:53 Dose: 1 note Polyethylene Glycol/Electrolytes (Miralax*) 17 gm PO DAILY PRN PRN Reason: Constipation Simethicone (Mylicon Tab*) 80 mg PO QID PRN PRN Reason: NOT STATED Last Admin: 06/03/17 08:32 Dose: 80 mg Warfarin Sodium (Coumadin Tab(*)) 8 mg PO ONCE@1700 ONE PRN Reason: Protocol Stop: 06/03/17 17:01 Vital Signs 06/02/17 06/02/17 06/02/17 15:48 16:02 18:51 Temperature 98.3 F Pulse Rate 96 Respiratory 16 18 18 Rate Blood Pressure 157/92 (mmHg) O2 Sat by Pulse 93 Oximetry 06/02/17 06/02/17 06/02/17 19:49 20:43 20:57 Temperature 98.3 F Pulse Rate 94 Respiratory 16 16 16 Rate Blood Pressure 148/69 (mmHg) O2 Sat by Pulse 94 Oximetry 06/02/17 06/02/17 06/02/17 23:28 23:36 23:49 Temperature 99.1 F Pulse Rate 99 Respiratory 20 18 16 Rate Blood Pressure 158/95 (mmHg) O2 Sat by Pulse 94 Oximetry 06/03/17 06/03/17 06/03/17 01:56 03:26 03:34 Temperature 97.9 F Pulse Rate 109 Respiratory 16 18 18 Rate Blood Pressure 148/98 (mmHg) O2 Sat by Pulse 91 Oximetry 06/03/17 06/03/17 06/03/17 03:37 05:35 07:20 Temperature Pulse Rate Respiratory 16 20 Rate Blood Pressure (mmHg) O2 Sat by Pulse 94 94 Oximetry 06/03/17 06/03/17 06/03/17 07:34 08:30 08:32 Temperature 98.4 F Pulse Rate 106 Respiratory 16 20 20 Rate Blood Pressure 169/101 (mmHg) O2 Sat by Pulse 94 Oximetry 06/03/17 06/03/17 06/03/17 12:01 12:14 12:16 Temperature 97.5 F Pulse Rate 99 Respiratory 20 16 21 Rate Blood Pressure 130/86 (mmHg) O2 Sat by Pulse 95 Oximetry 06/03/17 06/03/17 06/03/17 12:37 14:17 14:31 Temperature Pulse Rate Respiratory 20 20 20 Rate Blood Pressure (mmHg) O2 Sat by Pulse Oximetry Oxygen Devices in Use Now: None Appearance: Patient is a 52yo male who appears stated age and is sitting in the bed in NAD. Eyes: No Scleral Icterus, PERRLA Ears/Nose/Mouth/Throat: NL Teeth, Lips, Gums, Clear Oropharnyx, Mucous Membranes Moist Neck: NL Appearance and Movements; NL JVP, Trachea Midline Respiratory: Symmetrical Chest Expansion and Respiratory Effort, Clear to Auscultation Cardiovascular: NL Sounds; No Murmurs; No JVD, RRR, No Edema Abdominal: No Hepatosplenomegaly, - - Distended, Hyperactive BS in all 4 quadrants consisting of clicks and gurgles. No mass. Lymphatic: No Cervical Adenopathy Extremities: No Edema, No Clubbing, Cyanosis Skin: No Nodules or Sclerosis, - - Left knee covered in bulky dressing and cool pack. Neurological: Alert and Oriented x 3, NL Sensation, NL Gait, NL Muscle Strength and Tone Result Diagrams: 06/03/17 04:53 06/02/17 05:18 Assess/Plan/Problems-Billing Assessment: Patient is a 52yo male with a PMH significant for HTN, HLD and NIDDM II who is POD #1 after an elective LTHA. Patient is doing well and has no complication. - Patient Problems (1) Postoperative state Current Visit: Yes Status: Acute Code(s): Z98.890 - OTHER SPECIFIED POSTPROCEDURAL STATES SNOMED Code(s): 84366708 Comment: POD #2. Pain decreased without obvious signs of distress. Pain control per primary team. Patient has an intrathecal morphine pump which is managed by pain management and was most recently refilled on 05/24. Urinating and having multiple BMs without difficulty. More cooperative with PT/OT today and progressing well. (2) Diabetes Current Visit: No Status: Chronic Code(s): E11.9 - TYPE 2 DIABETES MELLITUS WITHOUT COMPLICATIONS SNOMED Code(s): 06587591 Comment: Continue lispro SSI coverage, hold metformin. Good control. Resume metformin at D/C. (3) Diarrhea Current Visit: Yes Status: Acute Code(s): R19.7 - DIARRHEA, UNSPECIFIED SNOMED Code(s): 46993549 Comment: Likely due to antibiotics but unlikely C. Diff. Will treat with probiotic and encourage PO fluid intake. Will consider imodium if continues. (4) HLD (hyperlipidemia) Current Visit: Yes Status: Acute Code(s): E78.5 - HYPERLIPIDEMIA, UNSPECIFIED SNOMED Code(s): 11401138 Comment: Continue lipitor. (5) Hypertension Current Visit: No Status: Chronic Code(s): I10 - ESSENTIAL (PRIMARY) HYPERTENSION SNOMED Code(s): 92905570 Comment: Well controlled. Continue Amlodopine, Metoprolol. (6) Pulmonary disease Current Visit: Yes Status: Acute Comment: Unknown type, probable COPD due to smoking history. Duoneb PRN, no signs of acute exacerbation or wheezing. (7) DVT prophylaxis Current Visit: No Status: Acute Code(s): MTQ2334 - SNOMED Code(s): 228690172 Comment: Heparin SQ with bridge to warfarin per ortho. (8) Full code status Current Visit: No Status: Acute Code(s): Z78.9 - OTHER SPECIFIED HEALTH STATUS SNOMED Code(s): 238205604 Status and Disposition: POD #2, Home or rehab dictated by clinical course.
[2017-06-03] MEDS ORDERED: Warfarin TAB(*) 4 MG PO ONE (17:00)
[2017-06-03] MEDS: Atorvastatin* 20 MG TAB PO SCH (17:41)
[2017-06-03] MEDS: Cyclobenzaprine TAB* 10 MG PO PRN (18:35)
[2017-06-03] MEDS: Lactobacillus Acidophilu (GG)* 1 CAP CAP PO SCH (21:03)
[2017-06-03] MEDS: Nicotine Patch Removal NOTE PATCH OFF SCH (21:04)
[2017-06-04] MEDS: oxyCODONE TAB* 5 MG TAB PO PRN ×3 (01:48→09:32)
[2017-06-04] MEDS: oxyCODONE/Acetamin 5/325 MG* TAB PO PRN ×2 (03:36→08:01)
[2017-06-04 05:32] LABS: Hematocrit 32 % (42-52); Hemoglobin 10.8 g/dl (14.0-18.0)
[2017-06-04 05:50] LABS: BUN/Creatinine Ratio 22.8 (8-20); Calcium 8.9 mg/dL (8.6-10.3); EGFR African American 132.5 (>60); Potassium 3.4 mmol/L (3.5-5.0)
[2017-06-04] MEDS ORDERED: Potassium Chlor TAB* 20 MEQ TAB.ER PO ONE (06:43)
[2017-06-04] MEDS: Magnesium Hydroxide LIQ* 30 ML UDC PO SCH (07:33)
[2017-06-04] MEDS: Docusate CAP* 100 MG PO SCH (07:33)
[2017-06-04] MEDS: Lactobacillus Acidophilu (GG)* 1 CAP CAP PO SCH (08:00)
[2017-06-04] MEDS: Morphine TAB Extended Release (*) 30 MG TAB.ER PO SCH (08:00)
[2017-06-04] MEDS: Vitamin THERAPEUTIC TAB PO SCH (08:00)
[2017-06-04] MEDS: Losartan TAB* 25 MG PO SCH (08:01)
[2017-06-04] MEDS: amLODIPine TAB* 5 MG PO SCH (08:01)
[2017-06-04] MEDS: Famotidine TAB* 20 MG PO SCH (08:01)
[2017-06-04] MEDS: Metoprolol Tartrate TAB* 50 mg PO SCH (08:01)
[2017-06-04] MEDS: Nicotine PATCH 21 MG/24 HR* PATCH TRANSDERM SCH (08:02)
[2017-06-04 08:12] VITALS: BP 143/88
[2017-06-04] MEDS: Insulin LISPRO* 1 UNITS UNIT SUBCUT SCH (09:22)
[2017-06-04] MEDS: Cyclobenzaprine TAB* 10 MG PO PRN (09:32)
--- NOTE | 2017-06-04 10:46 | PN ---
Progress Note - Progress Note Date of Service: 06/04/17 SOAP: Subjective: Pt is doing well. Pain control improved. Able to walk with less discomfort. Denies F/C, CP/SOB, or calf pain Objective: PE: 52 y/o WDWN M, NAD A&O LLE- dressing changed, inc c/d/i, calf soft NT, +DF/PF, NVI Vital Signs Temp Pulse Resp BP Pulse Ox 97.6 F 101 16 143/88 97 06/04/17 07:20 06/04/17 07:20 06/04/17 09:32 06/04/17 07:20 06/04/17 07:30 Laboratory Results - last 24 hr 06/01/17 06/03/17 06/03/17 17:06 12:06 16:40 Hgb Hct INR (Anticoag Therapy) Sodium Potassium Chloride Carbon Dioxide Anion Gap BUN Creatinine Est GFR ( Amer) Est GFR (Non-Af Amer) BUN/Creatinine Ratio Glucose POC Glucose (mg/dL) 117 H 178 H Calcium Hep B Core Total Ab Positive 06/03/17 06/04/17 06/04/17 20:59 05:09 05:09 Hgb 10.8 L Hct 32 L INR (Anticoag Therapy) 1.33 H Sodium Potassium Chloride Carbon Dioxide Anion Gap BUN Creatinine Est GFR ( Amer) Est GFR (Non-Af Amer) BUN/Creatinine Ratio Glucose POC Glucose (mg/dL) 128 H Calcium Hep B Core Total Ab 06/04/17 05:09 Hgb Hct INR (Anticoag Therapy) Sodium 134 Potassium 3.4 L Chloride 96 L Carbon Dioxide 32 Anion Gap 6 BUN 18 Creatinine 0.79 Est GFR ( Amer) 132.5 Est GFR (Non-Af Amer) 103.0 BUN/Creatinine Ratio 22.8 H Glucose 116 H POC Glucose (mg/dL) Calcium 8.9 Hep B Core Total Ab Assessment: 52 yo M pod 3 s/p LTKA Plan: PT/OT- wbat lle low potassium- given a dose of KCL before discharge coumadin for DVT prophylaxis, morphine ER and oxycodone for pain, colace for constipation lovenox today - 8 mg coumadin tonight, redraw monday d/c to home with vns today F/U 10-[address] Escobar
--- NOTE | 2017-06-04 12:36 | DS ---
DISCHARGE SUMMARY: DATE OF ADMISSION: 06/01/17 DATE OF DISCHARGE: 06/04/17 PROVIDER: Michelle Escobar MD * (DICTATED BY MARY MONZON) ADMITTING DIAGNOSIS: Status post left total knee arthroplasty for treatment of severe left knee osteoarthritis. SECONDARY DIAGNOSES: 1. Sleep apnea. 2. Hypertension. 3. Diabetes. 4. High cholesterol. CONSULTATIONS: Hospitalist and PT/OT. HISTORY OF PRESENT ILLNESS: Mr. Neff is a 52-year-old gentleman with complaints of left knee pain due to severe end-stage osteoarthritis. He failed conservative measures and therefore elected to undergo a left total knee arthroplasty with Dr. Escobar on 06/01/17. HOSPITAL COURSE: The patient was admitted to [facility] on 06/01/17. He underwent a left total knee arthroplasty. Post-operatively, he recovered on the short-stay surgical unit. Postop day 1, his Holden was removed. He was able to urinate on his own. He was advanced to a regular diet without difficulty. He had issues with pain control, therefore was started on long-acting morphine. He was restarted on his home medications. His labs and vitals remained stable. He was able to weight bear as tolerated on the left lower extremity. He advanced appropriately with physical therapy and occupational therapy. DVT prophylaxis was managed with Lovenox and Coumadin until he reached a therapeutic INR. By postop day 3, he was orthopedically and medically stable for discharge to home with VNS services. PHYSICAL EXAMINATION: General: A 52-year-old well-developed, well-nourished male, in no acute distress. Alert and oriented x3. Appropriate mood and affect. Left lower extremity: The dressing was changed. The incision is clean , dry, and intact. Positive dorsiflexion and plantar flexion of the ankle. Calves soft and nontender. Neurovascularly intact. DISCHARGE CONDITION: Stable. DISCHARGE MEDICATIONS: Home medications continued on discharge to include: 1. Morphine pump 50 mg/mL, 25 mg intrathecal every 6 minutes. 2. Multivitamin 1 by mouth daily. 3. Metoprolol 50 mg by mouth in the morning. 4. Amlodipine besylate 10 mg 1 by mouth in the morning. 5. Aspirin 81 mg in the morning. 6. Hydrocodone/acetaminophen 10/325 one by mouth every 6 hours as needed for pain. 7. Metformin 500 mg 1 by mouth twice a day. 8. Losartan 100 mg 1 by mouth in the morning. 9. Tizanidine 4 mg capsules by mouth 3 times a day as needed. 10. Famotidine 20 mg by mouth in the morning. 11. Atorvastatin 20 mg by mouth in the evening. 12. Transdermal nicotine 21 mg for 24 hours use daily. 13. Nicotine gum 2 mg, 7 mg by mouth every 2 hours. New medications on discharge to include: 1. Docusate 100 mg 1 by mouth 2 to 3 tabs a day for constipation. 2. MS Contin 30 mg every 12 hours for pain. 3. Oxycodone 10 mg 1 every 4 to 6 hours as needed for pain. 4. Coumadin 2 mg 1 to 5 tabs daily as directed by doctor. DISCHARGE INSTRUCTIONS: The patient is weightbearing as tolerated on the left lower extremity. It is okay for him to shower postop day 3. No bathing, swimming, or submerging the wound. Use gentle soap, pat dry, cover with gauze and Iker. Call the orthopedic office with increased redness, drainage, pain, or fever. Go to the ER for chest pain or shortness of breath. Regular diet. Increase fluids to prevent constipation. Use stool softeners. Call the office if no bowel movement within 48 hours. Colace for constipation. Continue PT and OT. Visiting home nurses to do wound checks and blood draws on Mondays and . Continue Coumadin for 1 month for DVT prophylaxis. Coumadin on 09/16, 8 mg; redraw on 06/05/17. Do not take aspirin while on Coumadin. We will resume aspirin in 1 month when the Coumadin is discontinued. Pain control with MS Contin 30 mg 1 by mouth twice a day and oxycodone 10 mg 1 every 4 to 6 hours as needed for pain. Okay to take the Tylenol with these pain medications, maximum daily dose Tylenol 4000 mg. Do not take hydrocodone while on the morphine and oxycodone. The patient will require antibiotics prior to any future dental work. He will follow up with Dr. Escobar in 10 to 14 days and should call to make an appointment. MICHAEL WATTS, MARY [id number]/[facility] #: [id number] ROSINA
[2017-06-05 14:44] LABS: Manual Entry Verification BM
== END 2017-06-04 10:45 | disposition home or self-care (01) | DRG 470 ==
LOC: AA 11:30 → SSU 18:34
PROVIDERS: ADMIT Orthopaedic Surgery Adult Reconstructive Orthopaedic Surgery; ATTEND Orthopaedic Surgery Adult Reconstructive Orthopaedic Surgery
PROC: 0SRD069 Replacement of Left Knee Joint with Oxidized Zirconium on Polyethylene Synthetic Substitute, Cemented, Open Approach (ICD-10-PCS; principal; 2017-06-01 13:00)
DX: M17.12 Unilateral primary osteoarthritis, left knee (principal); K52.1 Toxic gastroenteritis and colitis; G47.33 Obstructive sleep apnea (adult) (pediatric); I10 Essential (primary) hypertension; E11.9 Type 2 diabetes mellitus without complications; E78.00 Pure hypercholesterolemia, unspecified; M25.762 Osteophyte, left knee; Z79.84 Long term (current) use of oral hypoglycemic drugs; Z79.82 Long term (current) use of aspirin; Z79.891 Long term (current) use of opiate analgesic; Z79.899 Other long term (current) drug therapy; Z83.3 Family history of diabetes mellitus; Z82.49 Family history of ischemic heart disease and other diseases of the circulatory system; Z80.9 Family history of malignant neoplasm, unspecified; F17.210 Nicotine dependence, cigarettes, uncomplicated; T36.95XA Adverse effect of unspecified systemic antibiotic, initial encounter; Y92.230 Patient room in hospital as the place of occurrence of the external cause; X58.XXXA Exposure to other specified factors, initial encounter
CPT/HCPCS: 36415; 80048; 85014; 85018; 85049; 85610; 86703; 86704; 86706; 86803; 87340; 88305; 88311; 94760; A9270-GY; C1776; J0690; J1650; J2250; J2270; J2704; J3010

== ENCOUNTER 2017-09-12 21:23 | Emergency (ER) | payer MEDICARE ==
[2017-09-12] MEDS ORDERED: Morphine INJ* 4 MG/ML 1 ML SYRINGE (NEW SYRINGE VERSION) IV ONE (21:39)
[2017-09-12] MEDS ORDERED: Ketorolac INJ* 30 MG/ML 1 ML VIAL IV PUSH ONE (21:39)
[2017-09-12] MEDS ORDERED: Ondansetron INJ* 2 MG/ML VIAL IV ONE (21:40)
--- NOTE | 2017-09-12 22:01 | RAD ---
INDICATION: Chest pain. COMPARISON: Comparison is made with a prior chest x-ray study from March 20, 2017. TECHNIQUE: A portable view of the chest was obtained. FINDINGS: The heart is within normal limits in size. The lungs are underinflated. There is mild prominence of the interstitial markings likely due to underinflation. No focal infiltrate or pleural effusion is seen. IMPRESSION: NO EVIDENCE FOR ACUTE FINDING.
[2017-09-12 22:06] LABS: ABS Basophils 0.1 10^3/ul (0-0.2); ABS Eosinophils 0.1 10^3/ul (0-0.6); ABS Lymphocytes 2.1 10^3/ul (1.0-4.8); ABS Monocytes 0.9 10^3/ul (0-0.8); ABS Neutrophils 7.1 10^3/ul (1.5-7.7); ABS Nucleated RBC 0 10^3/ul; Eosinophil % 0.6 % (0-6); Hematocrit 49 % (42-52); Hemoglobin 16.3 g/dl (14.0-18.0); Lymphocyte % 20.1 % (25-47); Mean Corpuscular HGB Conc 34 g/dl (31-36); Mean Corpuscular Hemoglobin 32 pg (27-31); Mean Corpuscular Volume 94 fL (80-94); Mean Platelet Volume 8 um3 (7.4-10.4); Nucleated Red Blood Cells % 0.1; Platelet Count 290 10^3/ul (150-450); Red Blood Count 5.15 10^6/ul (4.0-5.4); Red Cell Distribution Width 15 % (10.5-15); White Blood Count 10.2 10^3/ul (3.5-10.8)
[2017-09-12 22:14] LABS: INR 0.98 (0.77-1.02)
[2017-09-12 22:21] LABS: EGFR Non-African American 144.3 (>60)
[2017-09-12] MEDS ORDERED: Iodixanol* (CONTRAST) 320 MG/ML 100 ML SDV IV ONE (23:13)
[2017-09-13] MEDS ORDERED: methylPREDNISolone 125 MG* 2 ML VIAL IV ONE (00:12)
--- NOTE | 2017-09-13 01:02 | ED ---
Balbir Tam Rebecca, scribed for Barbara Clark MD on 09/12/17 at 2139 . HPI Chest Pain - HPI Summary HPI Summary: Pt is a 52 y/o M who presents to ED c/o CP. Pain began today at approximately 0073-2620 today while laying in his chair. Pain is on the right side of the chest and is currently severe, ranked 10/10 and characterized as sharp. Sx aggravated by cough, movement, and deep breaths, alleviated by nothing. He has not taken anything for the pain [employer]. Additionally c/o productive cough. Denies fever. States that he has been sick for the last week with "flu-like symptoms" which have been treated with Robitussin. SHx current smoker, has been for ~40 years and retired. PMHx HTN and an automatic morphine pump in the back that is refilled about every 6 months. - History of Current Complaint Chief Complaint: EDChestWallPain Time Seen by Provider: 09/12/17 21:30 Hx Obtained From: Patient Onset/Duration: Started Hours Ago, Still Present Time of Onset: 16:00 Current Severity: Severe Pain Intensity: 10 Pain Scale Used: 0-10 Numeric Chest Pain Location: Right Anterior Chest Pain Radiates: No Character: Sharp/Stabbing Aggravating Factor(s): Movement, Deep Breaths, Other: - Cough Alleviating Factor(s): Nothing Associated Signs and Symptoms: Positive: Productive Cough. Negative: Fever - Additional Pertinent History Primary Care Physician: [id number] - Allergy/Home Medications Allergies/Adverse Reactions: Allergies Allergy/AdvReac Type Severity Reaction Status Date / Time No Known Allergies Allergy Verified 08/16/17 11:17 PMH/Surg Hx/FS Hx/Imm Hx Endocrine/Hematology History: Reports: Hx Diabetes Denies: Hx Bone Marrow Disease, Hx Sickle Cell Disease, Hx Thyroid Disease, Hx Anemia Cardiovascular History: Reports: Hx Hypercholesterolemia, Hx Hypertension, Other Cardiovascular Problems/Disorders - 06/2015- SIRS- R/T ALCOHOL AND NARCOTIC WITHDRAWL Respiratory History: Reports: Hx Pneumonia, Hx Sleep Apnea - SURGERY DONE HERE 20 YRSAGO, DOES NOT USE CPAP CURRENTLY, Other Respiratory Problems/Disorders - HEAVY 35+ YR SMOKER, STATES HE SMOKES 6 CIGS/DAY CURRENTLY Denies: Hx Asthma, Hx Chronic Obstructive Pulmonary Disease (COPD) GI History: Reports: Other GI Disorders - 12/2013 VENTRAL/UMBILICAL HERNIA Denies: Hx Ulcer History: Denies: Other Problems/Disorders Musculoskeletal History: Reports: Hx Arthritis - OSTEOARTHRITIS LEFT KNEE, Hx Back Problems, Other Musculoskeletal History - FAILED BACK SYNDROME, CHRONIC PAIN Sensory History: Denies: Hx Cataracts, Hx Contacts or Glasses, Hx Glaucoma, Hx Hearing Aid Opthamlomology History: Denies: Hx Cataracts, Hx Contacts or Glasses, Hx Glaucoma Neurological History: Reports: Other Neuro Impairments/Disorders - 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 LUMBAR LAMINECTOMY L5-S1- [facility] [place]. OBSTRUCTIVE SLEEP APNEA, NASAL POLYP , SEPTUM- 10/2000. VENTRAL/UMBILICAL HERNIA REPAIR- 12/2013- [facility] [place]. RIGHT TOTAL KNEE REPLACEMENT X 2- CORBIN Hx Anesthesia Reactions: No Infectious Disease History: No Infectious Disease History: Denies: Hx Clostridium Difficile, Hx Hepatitis, Hx Human Immunodeficiency Virus (HIV), Hx of Known/Suspected MRSA, Hx Shingles, Hx Tuberculosis, History Other Infectious Disease, Traveled Outside the [place] in Last 30 Days - Family History Known Family History: Positive: Hypertension, Diabetes, Other - [place] - Social History Alcohol Use: None Alcohol Amount: FEW DRINKS A WEEK Substance Use Type: Reports: None Substance Use Comment - Amount & Last Used: INTRATHECAL MS PUMP RIGHT SIDE Smoking Status (MU): Current Every Day Smoker Type: Cigarettes Amount Used/How Often: 4 cigarettes/day Length of Time of Smoking/Using Tobacco: 35 YRS Have You Smoked in the Last Year: Yes Review of Systems Positive: Other - flu-like symptoms. Negative: Fever Positive: Chest Pain - right-sided Positive: Cough - productive All Other Systems Reviewed And Are Negative: Yes Physical Exam - Summary Physical Exam Summary: VITAL SIGNS: Reviewed. GENERAL: ~Patient is a well-developed and nourished male who is lying in the stretcher. Patient is not in any acute respiratory distress. HEAD AND FACE: No signs of trauma. No ecchymosis, hematomas or skull depressions. No sinus tenderness. EYES: PERRLA, EOMI x 2, No injected conjunctiva, no nystagmus. EARS: Hearing grossly intact. Ear canals and tympanic membranes are within normal limits. MOUTH: Oropharynx within normal limits. NECK: Supple, trachea is midline, no adenopathy, no JVD, no carotid bruit, no c- spine tenderness, neck with full ROM. CHEST: Tenderness of the right chest wall. LUNGS: Clear to auscultation bilaterally. No wheezing or crackles. CVS: Regular rate and rhythm, S1 and S2 present, no murmurs or gallops appreciated. ABDOMEN: Soft, non-tender. No signs of distention. No rebound no guarding, and no masses palpated. Bowel sounds are normal. EXTREMITIES: FROM in all major joints, no edema, no cyanosis or clubbing. NEURO: Alert and oriented x 3. No acute neurological deficits. Speech is normal and follows commands. SKIN: Dry and warm Triage Information Reviewed: Yes Vital Signs On Initial Exam: Initial Vitals Temp Pulse Resp BP Pulse Ox 97.5 F 100 16 158/101 96 09/12/17 21:26 09/12/17 21:26 09/12/17 21:26 09/12/17 21:26 09/12/17 21:26 Vital Signs Reviewed: Yes Diagnostics - Vital Signs Vital Signs Temp Pulse Resp BP Pulse Ox 09/12/17 21:26 97.5 F 100 16 158/101 96 - Laboratory Result Diagrams: 09/12/17 21:48 09/12/17 21:48 Lab Statement: Any lab studies that have been ordered have been reviewed, and results considered in the medical decision making process. - Radiology CXR Xray Interpretation: No Acute Changes - NO EVIDENCE FOR ACUTE FINDING. ED physician reviewed this radiology report. Radiology Interpretation Completed By: Radiologist - CT CTA Chest CT Interpretation: No Acute Changes - No pulmonary emboli. ED physician reviewed this radiology report. Pending official radiology report. CT Interpretation Completed By: Radiologist - EKG 2141 Cardiac Rate: NL - 99 bpm EKG Rhythm: Sinus Rhythm EKG Interpretation: Normal axis. Normal interval. No ischemic changes. Re-Evaluation - Re-Evaluation First Eval Re-Evaluation Time: 22:22 Comment: Discussed EKG, CXR and blood results with the pt thus far and the plan to have a CTA Chest done. Second Eval Re-Evaluation Time: 00:09 Change: Improved Comment: Discussed CTA Chest results and plan to D/C with the pt. He understands and agrees. Chest Pain Course/Dx - Course Assessment/Plan: Pt is a 52 y/o M who presents to ED c/o sharp, severe right anterior CP since [id number] today which began while laying in his chair. Sx aggravated by cough, movement, and deep breaths. Additionally c/o productive cough. Denies fever. States that he has been sick for the last week with "flu- like symptoms" which have been treated with Robitussin. SHx current smoker, has been for ~40 years and retired. PMHx HTN and an automatic morphine pump in the back that is refilled about every 6 months. CXR reveals no acute findings. EKG is sinus rhythm with no ischemic changes. CTA Chest reveals no pulmonary emboli. Troponin is 0.00. Pt will be D/C to home with Dx of chest wall pain and cough with Rx for Vicodin and a paper prescription for Percocet. He understands and agrees. Elevated BP noted. - Diagnoses Provider Diagnoses: Chest wall pain, Coughing Discharge - Discharge Plan Condition: Stable Disposition: HOME Prescriptions: Hydrocodone/APAP 5/300 (NF) [Vicodin 5 MG/300 MG(NF)] 1 tab PO Q6H PRN #14 tab MDD 4 PRN Reason: Pain Hydrocodone/APAP 5/300 (NF) [Vicodin 5 MG/300 MG(NF)] 1 tab PO Q6H PRN #14 tab MDD 4 PRN Reason: Pain predniSONE TAB* [Deltasone TAB*] 40 mg PO DAILY #10 tab Patient Education Materials: Acute Cough (ED), Chest Wall Pain (ED) Referrals: Essie Cummings NP [Primary Care Provider] - 3 Days Additional Instructions: RETURN TO EMERGENCY DEPARTMENT FOR ANY NEW OR WORSENING SYMPTOMS The documentation as recorded by the Balbir leo Rebecca accurately reflects the service I personally performed and the decisions made by me, Barbara Clark MD.
[2017-09-13 01:05] VITALS: BP 149/97
--- NOTE | 2017-09-13 08:03 | RAD ---
INDICATION: Chest pain COMPARISON: None TECHNIQUE: Axial source images were acquired following the administration of 94 mL Visipaque [address] angiographic technique. Coronal and sagittal reconstructed images were constructed and reviewed. FINDINGS: There there are no filling defects in the pulmonary arteries to indicate acute pulmonary embolic disease. The right mainstem pulmonary artery measures 3.1 cm in diameter, a slightly enlarged measurement. There is a 1.8 cm parenchymal air cysts in the left upper lobe. Otherwise there are no focal infiltrates or effusions. There are no pulmonary parenchymal masses. The heart is normal in size. There is no evidence of pericardial effusion. There is no evidence of aortic aneurysm or dissection. There is no mediastinal, hilar, or axillary lymphadenopathy. Degenerative changes of the thoracic spine include loss of intervertebral disc height and lower anterior marginal osteophyte formation. An intrathecal stimulator is partially visualized terminating at the midthoracic level. At the left adrenal gland there is a 9 mm nodule with a Hounsfield units measuring 12. IMPRESSION: 1. No CT of evidence of pulmonary embolism. 2. Chronic, degenerative and iatrogenic findings described in the body of the report.
== END 2017-09-13 01:10 | disposition home or self-care (01) ==
LOC: ED 21:23
DX: R07.89 Other chest pain (principal); R05 Cough; E11.9 Type 2 diabetes mellitus without complications; Z79.84 Long term (current) use of oral hypoglycemic drugs; E78.00 Pure hypercholesterolemia, unspecified; I10 Essential (primary) hypertension; Z96.651 Presence of right artificial knee joint; F17.210 Nicotine dependence, cigarettes, uncomplicated
CPT/HCPCS: 36415; 71045; 71275; 80053; 82550; 83605; 84484; 85025; 85379; 85610; 85730; 93005; 96374; 96375; 99284; J1885; J2270; J2405; J2930; Q9967

== ENCOUNTER 2018-09-18 16:22 | Emergency (ER) | payer MEDICARE ==
[2018-09-18] MEDS ORDERED: Pantoprazole IV* 40 MG IV ONE (18:56)
[2018-09-18] MEDS ORDERED: Albuterol/Ipratropium NEB.SOL* Albuterol 2.5 MG/Ipratropium 0.5 MG 3 ML INH ONE (18:56)
[2018-09-18 19:22] LABS: ABS Basophils 0.1 10^3/ul (0-0.2); ABS Eosinophils 0 10^3/ul (0-0.6); ABS Lymphocytes 1.1 10^3/ul (1.0-4.8); ABS Monocytes 0.6 10^3/ul (0-0.8); ABS Neutrophils 8.6 10^3/ul (1.5-7.7); ABS Nucleated RBC 0 10^3/ul; Eosinophil % 0.1 %; Hematocrit 47 % (36-46); Hemoglobin 15.9 g/dL (14.0-18.0); Lymphocyte % 10.9 %; Mean Corpuscular HGB Conc 34 g/dL (31-36); Mean Corpuscular Hemoglobin 34 pg (27-31); Mean Corpuscular Volume 100 fL (80-94); Mean Platelet Volume 7.8 fL (7.4-10.4); Nucleated Red Blood Cells % 0; Platelet Count 236 10^3/uL (150-450); Red Blood Count 4.74 10^6 /uL (4.18-5.48); Red Cell Distribution Width 14 % (10.5-15); White Blood Count 10.4 10^3/uL (3.5-10.8)
[2018-09-18 19:41] LABS: Albumin 4.2 g/dL (3.2-5.2); Albumin/Globulin Ratio 1.3 (1-3); BUN/Creatinine Ratio 21.4 (8-20); C Reactive Protein 5.08 mg/L (<8.01); Calcium 9.4 mg/dL (8.6-10.3); EGFR African American 184.7 (>60); EGFR Non-African American 152.6 (>60); Globulin 3.2 g/dL (2-4); Total Bilirubin 0.4 mg/dL (0.2-1.0); Total Protein 7.4 g/dL (6.4-8.9)
[2018-09-18 19:42] LABS: Troponin I 0.01 ng/mL (<0.04)
[2018-09-18 19:43] LABS: Potassium 4.4 mmol/L (3.5-5.0)
[2018-09-18] MEDS ORDERED: Iodixanol* (CONTRAST) 320 MG/ML 100 ML SDV IV ONE (20:12)
[2018-09-18 20:19] LABS: Urine Appearance Cloudy; Urine Bacteria Absent (Absent); Urine Bilirubin Negative (Negative); Urine Blood 1+ (Negative); Urine Color Yellow; Urine Glucose Negative (Negative); Urine Ketones Trace (Negative); Urine Nitrite Negative (Negative); Urine Protein Negative (Negative); Urine Red Blood Cell 1+(3-5/hpf) (Absent); Urine Specific Gravity 1.018 (1.010-1.030); Urine Urobilinogen Negative (Negative); Urine White Blood Cell Absent (Absent)
--- NOTE | 2018-09-18 20:42 | ED ---
GI/ HPI - HPI Summary HPI Summary: 53-year-old male presents with central abd pain for the past couple hours. He states that he's been nauseous but no vomiting. No diarrhea or constipation. Normal bowel movement today. States he's had no appetite. No fevers. No chest pain or shortness of breath. Never had this pain before. Has history of multiple back surgeries. Denies any urinary symptoms. Has not tried anything for his symptoms. He has a pain pump for his back. he also has been having a cough. - History of Current Complaint Chief Complaint: EDAbdPain Time Seen by Provider: 09/18/18 18:47 Stated Complaint: IM HAVING TERRIBLE TERRIBLE STOMACH PAINS PER PT Pain Intensity: 8 - Additional Pertinent History Primary Care Physician: BIRGIT - Allergy/Home Medications Allergies/Adverse Reactions: Allergies Allergy/AdvReac Type Severity Reaction Status Date / Time No Known Allergies Allergy Verified 08/28/18 14:23 PMH/Surg Hx/FS Hx/Imm Hx Endocrine/Hematology History: Reports: Hx Diabetes Denies: Hx Bone Marrow Disease, Hx Sickle Cell Disease, Hx Thyroid Disease, Hx Anemia Cardiovascular History: Reports: Hx Hypercholesterolemia, Hx Hypertension, Other Cardiovascular Problems/Disorders - 06/2015- SIRS- R/T ALCOHOL AND NARCOTIC WITHDRAWL Respiratory History: Reports: Hx Pneumonia, Hx Sleep Apnea - SURGERY DONE HERE 20 YRSAGO, DOES NOT USE CPAP CURRENTLY, Other Respiratory Problems/Disorders - HEAVY 35+ YR SMOKER, STATES HE SMOKES 6 CIGS/DAY CURRENTLY Denies: Hx Asthma, Hx Chronic Obstructive Pulmonary Disease (COPD) GI History: Reports: Other GI Disorders - 12/2013 VENTRAL/UMBILICAL HERNIA Denies: Hx Ulcer History: Denies: Hx Renal Disease, Other Problems/Disorders Musculoskeletal History: Reports: Hx Arthritis - OSTEOARTHRITIS LEFT KNEE, Hx Back Problems, Other Musculoskeletal History - FAILED BACK SYNDROME, CHRONIC PAIN Sensory History: Denies: Hx Cataracts, Hx Contacts or Glasses, Hx Glaucoma, Hx Hearing Aid Opthamlomology History: Denies: Hx Cataracts, Hx Contacts or Glasses, Hx Glaucoma Neurological History: Reports: Other Neuro Impairments/Disorders - 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 LUMBAR LAMINECTOMY L5-S1- [facility] [place]. OBSTRUCTIVE SLEEP APNEA, NASAL POLYP , SEPTUM- 10/2000. VENTRAL/UMBILICAL HERNIA REPAIR- 12/2013- [facility] [place]. RIGHT TOTAL KNEE REPLACEMENT X 2- [facility]BIN. MORPHINE PUMP FOR BACK PAIN Hx Anesthesia Reactions: No - Immunization History Date of Influenza Vaccine: no Immunizations Up to Date: Yes Infectious Disease History: No Infectious Disease History: Denies: Hx Clostridium Difficile, Hx Hepatitis, Hx Human Immunodeficiency Virus (HIV), Hx of Known/Suspected MRSA, Hx Shingles, Hx Tuberculosis, History Other Infectious Disease, Traveled Outside the in Last 30 Days - Family History Family History: non contributory - Social History Alcohol Use: None Alcohol Amount: FEW DRINKS A WEEK Substance Use Type: Reports: None Substance Use Comment - Amount & Last Used: INTRATHECAL MS PUMP RIGHT SIDE Smoking Status (MU): Current Every Day Smoker Type: Cigarettes Amount Used/How Often: 4-6 cigarettes/day Length of Time of Smoking/Using Tobacco: 35 YRS Have You Smoked in the Last Year: Yes Review of Systems Negative: Fever Negative: Chest Pain Positive: Cough. Negative: Shortness Of Breath Positive: Abdominal Pain All Other Systems Reviewed And Are Negative: Yes Physical Exam Triage Information Reviewed: Yes Vital Signs On Initial Exam: Initial Vitals Temp Pulse Resp BP Pulse Ox 97.8 F 107 18 179/105 93 09/18/18 16:26 09/18/18 16:26 09/18/18 16:26 09/18/18 16:26 09/18/18 16:26 Vital Signs Reviewed: Yes Appearance: Positive: Well-Appearing Skin: Positive: Warm, Dry Head/Face: Positive: Normal Head/Face Inspection Eyes: Positive: Normal, Conjunctiva Clear ENT: Positive: Pharynx normal Respiratory/Lung Sounds: Positive: Clear to Auscultation, Breath Sounds Present , Wheezes Cardiovascular: Positive: Normal, RRR Abdomen Description: Positive: Soft, Other: - periumbilical pain Bowel Sounds: Positive: Present Musculoskeletal: Positive: Normal Neurological: Positive: Normal Psychiatric: Positive: Normal Diagnostics - Vital Signs Vital Signs Temp Pulse Resp BP Pulse Ox 09/18/18 20:19 92 91 09/18/18 19:36 98.8 F 89 16 166/89 92 09/18/18 19:09 102 182/111 96 09/18/18 19:00 105 92 09/18/18 18:48 93 90 09/18/18 16:26 97.8 F 107 18 179/105 93 - Laboratory Lab Results: Lab Results 09/18/18 09/18/18 09/18/18 Range/Units 19:15 19:15 19:55 WBC 10.4 (3.5-10.8) 10^3/uL RBC 4.74 (4.18-5.48) 10^6 /uL Hgb 15.9 (14.0-18.0) g/dL Hct 47 H (36-46) % MCV 100 H (80-94) fL MCH 34 H (27-31) pg MCHC 34 (31-36) g/dL RDW 14 (10.5-15) % Plt Count 236 (150-450) 10^3/uL MPV 7.8 (7.4-10.4) fL Neut % (Auto) 83.0 % Lymph % (Auto) 10.9 % [place] % (Auto) 5.3 % Eos % (Auto) 0.1 % Baso % (Auto) 0.7 % Absolute Neuts (auto) 8.6 H (1.5-7.7) 10^3/ul Absolute Lymphs (auto) 1.1 (1.0-4.8) 10^3/ul Absolute Monos (auto) 0.6 (0-0.8) 10^3/ul Absolute Eos (auto) 0 (0-0.6) 10^3/ul Absolute Basos (auto) 0.1 (0-0.2) 10^3/ul Absolute Nucleated RBC 0 10^3/ul Nucleated RBC % 0 Sodium 138 (135-145) mmol/L Potassium 4.4 (3.5-5.0) mmol/L Chloride 101 (101-111) mmol/L Carbon Dioxide 28 (22-32) mmol/L Anion Gap 9 (2-11) mmol/L BUN 12 (6-24) mg/dL Creatinine 0.56 L (0.67-1.17) mg/dL Est GFR ( Amer) 184.7 (>60) Est GFR (Non-Af Amer) 152.6 (>60) BUN/Creatinine Ratio 21.4 H (8-20) Glucose 117 H (70-100) mg/dL Calcium 9.4 (8.6-10.3) mg/dL Total Bilirubin 0.40 (0.2-1.0) mg/dL AST 44 H (13-39) U/L ALT 39 (7-52) U/L Alkaline Phosphatase 76 (34-104) U/L Troponin I 0.01 (<0.04) ng/mL C-Reactive Protein 5.08 (<8.01) mg/L Total Protein 7.4 (6.4-8.9) g/dL Albumin 4.2 (3.2-5.2) g/dL Globulin 3.2 (2-4) g/dL Albumin/Globulin Ratio 1.3 (1-3) Amylase 24 L (29-103) U/L Lipase 18 (11.0-82.0) U/L Urine Color Yellow Urine Appearance Cloudy Urine pH 6.0 (5-9) Ur Specific [place] 1.018 (1.010-1.030) Urine Protein Negative (Negative) Urine Ketones Trace A (Negative) Urine Blood 1+ A (Negative) Urine Nitrate Negative (Negative) Urine Bilirubin Negative (Negative) Urine Urobilinogen Negative (Negative) Ur Leukocyte Esterase Negative (Negative) Urine WBC (Auto) Absent (Absent) Urine RBC (Auto) 1+(3-5/hpf) A (Absent) Urine Bacteria Absent (Absent) Urine Glucose Negative (Negative) Result Diagrams: 09/18/18 19:15 09/18/18 19:15 Lab Statement: Any lab studies that have been ordered have been reviewed, and results considered in the medical decision making process. - Radiology chest Radiology Interpretation Completed By: ED Physician Summary of Radiographic Findings: no active disease - CT abd CT Interpretation Completed By: Radiologist Summary of CT Findings: IMPRESSION: 1. Minimal nonobstructing right renal calculus since 01/10/2014. 2. Large gallstone in the gallbladder neck which is new since the prior study. with slight pericholecystic induration which may reflect cholecystitis. 3. Mild fatty infiltration of the liver. 4. Otherwise stable abdomen/pelvis with epidural catheter and lower lumbar. fusion. - EKG No standard instances Cardiac Rate: NL EKG Rhythm: Sinus Rhythm Summary of EKG Findings: sinus rhythm Re-Evaluation - Re-Evaluation First Eval Re-Evaluation Time: 22:40 Change: Improved Comment: able to tolerate liquids in ed, pain better GIGU Course/Dx - Course Course Of Treatment: 53-year-old male presents with central abd pain for the past couple hours. He states that he's been nauseous but no vomiting. No diarrhea or constipation. Normal bowel movement today. States he's had no appetite. No fevers. No chest pain or shortness of breath. Never had this pain before. Has history of multiple back surgeries. Denies any urinary symptoms. Has not tried anything for his symptoms. He has a pain pump for his back. On exam has tenderness periumbilically. No rebound. wbc normal. LFTs normal except for ASTs slightly elevated at 44. CRP normal. Gave morphine and feeling better. some wheezing on exam that improved with albuterol. chest xray read by me as normal. CT shows gallstone and cholecystic fluid. Discussed with Dr. blancas and says that can't he go home and follow up outpatient. Patient was able to tolerate liquids in the ER. We'll discharge follow-up with surgery. Patient understands agrees plan. - Diagnoses Differential Diagnoses - Male: Appendicitis, Gall Bladder Disease, Pancreatitis Provider Diagnoses: Gallstones Discharge - Sign-Out/Discharge Documenting (check all that apply): Patient Departure Patient Received Moderate/Deep Sedation with Procedure: No - Discharge Plan Condition: Good Disposition: HOME Prescriptions: Ondansetron ODT TAB* [Zofran 4 MG Odt TAB*] 4 mg PO Q6H PRN #12 tab.odt PRN Reason: Nausea oxyCODONE/Acetamin 5/325 MG* [Percocet 5/325 TAB*] 1 tab PO Q6H PRN #12 tab MDD 4 PRN Reason: Pain Patient Education Materials: Gallstones (ED) Referrals: Essie Cummings NP [Primary Care Provider] - Burak Blancas MD [Medical Doctor] - Additional Instructions: Take tyenlol or ibuprofen every 6 hours as needed for pain, take percocet every 6 hours for break through pain as needed Take Zofran every 6 hours as needed for nausea Avoid fatty foods Follow up with surgery Return to ED if develop fever, persistent vomiting, or any new or worsening symptoms - Billing Disposition and Condition Condition: GOOD Disposition: Home
[2018-09-18] MEDS ORDERED: Morphine INJ* 2 MG/ML 1 ML SYRINGE (TWO MG - NEW SYRINGE VERSION) IV ONE (21:56)
[2018-09-18] MEDS ORDERED: Morphine 4 MG/ML VIAL (1 ml) 4 MG/ML VIAL ONE (22:11)
[2018-09-18] MEDS ORDERED: Morphine 4 MG/ML VIAL (1 ml) 4 MG/ML VIAL IV ONE (22:13)
[2018-09-18] MEDS ORDERED: Ondansetron ODT TAB* 4 MG PO ONE (22:41)
[2018-09-19 00:03] VITALS: BP 162/88
== END 2018-09-19 00:01 | disposition home or self-care (01) ==
LOC: ED 16:22
DX: K80.80 Other cholelithiasis without obstruction (principal); N20.0 Calculus of kidney; K76.0 Fatty (change of) liver, not elsewhere classified; R05 Cough; Z96.651 Presence of right artificial knee joint; F17.210 Nicotine dependence, cigarettes, uncomplicated
CPT/HCPCS: 36415; 71046; 74177; 80053; 81003; 81015; 82150; 83690; 84484; 85025; 86140; 93005; 96374; 96375; 99284; A9270-GY; J2270; Q9967

== ENCOUNTER 2018-09-19 11:43 | Observation (INO) | payer MEDICAID, MEDICARE ==
[2018-09-19] MEDS ORDERED: NS 0.9% 1000 ML** 1,000 ML IV SCH (12:15)
[2018-09-19] MEDS ORDERED: Bupivacaine 0.25% SDV PF* 10 ML VIAL INJ ONE ×2 (13:36)
[2018-09-19] MEDS ORDERED: ceFAZolin 1 GM in Dextrose (*) 1 GM/50 ML BAG IVPB ONE ×2 (13:39→18:00)
[2018-09-19] MEDS ORDERED: ceFAZolin 2 GM in NS PREMIX(*) 2 GM/100 ML BAG IVPB ONE (13:39)
[2018-09-19] MEDS ORDERED: fentaNYL* 50 MCG/ML 2 ML VIAL (100 MCG VIAL) ONE ×2 (13:57→14:31)
[2018-09-19] MEDS ORDERED: Rocuronium* 10 MG/ML VIAL ONE ×2 (13:57→15:05)
[2018-09-19] MEDS ORDERED: Midazolam* 1 MG/ML 5 ML VIAL (5 MG) ONE (13:57)
[2018-09-19] MEDS ORDERED: Ketorolac INJ* 30 MG/ML 1 ML VIAL ONE (14:35)
[2018-09-19] MEDS ORDERED: Lidocaine 2% PF * 5 ML VIAL ONE (14:35)
[2018-09-19] MEDS ORDERED: Dexamethasone IV* 4 MG/ML 1 ML (4 MG) ONE (14:35)
[2018-09-19] MEDS ORDERED: Succinylcholine* 20 MG/ML 10 ML VIAL ONE (14:35)
[2018-09-19] MEDS ORDERED: Ondansetron INJ* 2 MG/ML VIAL ONE (14:35)
[2018-09-19] MEDS ORDERED: Metoprolol Tartrate IV* 1 MG/ML 5 ML VIAL ONE (14:35)
[2018-09-19] MEDS ORDERED: Propofol* 10 MG/ML 20 ML BTL ONE ×2 (14:35→15:26)
[2018-09-19] MEDS ORDERED: DiMENhydriNATE IV* 50 MG/ML VIAL ONE (14:35)
[2018-09-19] MEDS ORDERED: Levalbuterol HFA INHALER* 1 PUFF MDI ONE (14:59)
[2018-09-19] MEDS ORDERED: HYDROmorphone INJ1* 1 MG/ML SYRINGE ONE (15:07)
--- NOTE | 2018-09-19 15:27 | HP ---
AMENDED REPORT NOW INCLUDES DESIGNATED COSIGNER CC: [place] [facility] [place] Essie Cummings NP * ADMISSION HISTORY AND PHYSICAL: DATE OF ADMISSION: 09/19/18 ATTENDING SURGEON: Dr. Wade Parikh.* (DICTATED BY MARY MUNOZ) CHIEF COMPLAINT: Abdominal pain. HISTORY OF PRESENT ILLNESS: This is a 53-year-old male with relatively acute onset of mid upper abdominal pain beginning around noon on 09/18/18. He states that he had had a breakfast sandwich in the morning. Since onset of pain, he has had continuous nonradiating mid epigastric pain at a level of 8/10 associated with nausea, but no vomiting. He denies fever or chills. He denies diarrhea. He had a normal bowel movement yesterday morning. He has not had any prior similar episodes. [place] [facility]. Lab work showed an essentially normal CBC (elevated MCV) as well as essentially normal chemistries with mild elevation only of AST. His CRP was 5. Amylase and lipase were normal. Urinalysis was essentially normal other than 1+ blood. CT scan of the abdomen and pelvis showed a large 2.7 cm stone in the neck of the gallbladder with some slight pericholecystic induration. There was no ductal dilatation. There was a small nonobstructing right renal calculus which was stable from prior studies and there was some mild fatty infiltration of the liver. Chest x-ray showed no acute process. PAST MEDICAL HISTORY: Significant for chronic pain secondary to failed back syndrome. He was treated for hypertension and type 2 diabetes as well as GERD. He has a history of sleep apnea, for which he underwent uvulopalatopharyngoplasty with improvement. He denies history of asthma, IN, or angina. He is a chronic smoker. PAST SURGICAL HISTORY: Surgeries include a left TKA in May 2017, prior right TKA x2. He has had primary repair of an umbilical hernia by Dr. Cifuentes with concurrent ventral incisional hernia repair with mesh in 2013. He has an implanted right abdominal wall intrathecal morphine pump, which has been replaced on number of times. He has also had prior dorsal column stimulators placed and removed. CURRENT MEDICATIONS: 1. Intrathecal morphine pump per Pain Clinic. 2. Metoprolol tartrate 50 mg once daily. 3. Amlodipine 10 mg once daily. 4. Aspirin 81 mg once daily. 5. Atorvastatin 20 mg once daily. 6. Losartan 100 mg once daily. 7. Tizanidine 4 mg t.i.d. p.r.n. 8. Metformin 1000 mg q. day. 9. Hydrocodone/APAP 10/325 one tablet every 6 hours p.r.n. (typically uses 4 per day). 10. Famotidine 20 mg once daily. DRUG ALLERGIES: None. FAMILY HISTORY: Positive for gallbladder disease. SOCIAL HISTORY: The patient is a current smoker of about 1 pack per day for the past 35 years. He denies recent use of alcohol and denies any recent use of other recreational drugs. REVIEW OF SYSTEMS: General: No recent constitutional symptoms or acute illnesses other than described in the HPI. HEENT: No problems reported other than dry mouth. Cardiovascular: No chest pain, palpitations, history of IN or angina. He is treated for hypertension. Respiratory: Smoking history as noted. Sleep apnea history, not currently using CPAP. No acute shortness of breath or cough. GI: As above per HPI. No lower GI symptoms. Colonoscopy done within the past 5 to 10 years reportedly normal. : No problems reported. CT scan showing small renal calculus, but no prior history of nephrolithiasis or hematuria. Endocrine: He was treated for type 2 diabetes. No history of thyroid dysfunction. Musculoskeletal: As noted above. No additions. Neurological: As noted above. Chronic pain with active morphine intrathecal pump. PHYSICAL EXAMINATION GENERAL: Well-nourished obese male, in no acute distress. VITAL SIGNS: Height 6 feet, weight 275 pounds, BMI 37. Temperature 98.1, blood pressure 164/66, pulse 92, respirations 20, room air saturation 95%. HEENT: Pupils equal, round, and reactive. EOMs intact. No conjunctival pallor or scleral icterus. Oropharynx: Mucous membranes moist. Some missing and some broken teeth. No intraoral lesions. NECK: No lymphadenopathy, thyromegaly, or masses. LUNGS: Scattered coarse rhonchi bilaterally. No wheezes or rales. HEART: Regular rate and rhythm. No murmur appreciated. ABDOMEN: Obese. Multiple well-healed surgical scars. Palpable pump in the right mid abdomen. Bowel sounds present and normal, soft with diffuse mild tenderness and moderately severe tenderness in the right upper quadrant where the area is firm, almost with a sense of a mass. No other palpable masses or organomegaly. No palpable inguinal hernias. GENITALIA: Not done. RECTAL: Not done. BACK: Well-healed surgical scars. EXTREMITIES: Bilateral knee scars. No peripheral edema. No open lesions of the feet or ankles. NEUROLOGICAL: As above. No additions. SKIN: Warm and dry. No suspicious rashes or lesions noted. DIAGNOSTIC STUDIES/LAB DATA: Laboratory as noted above. Imaging as noted above. IMPRESSION: Acute calculus cholecystitis. PLAN: Laparoscopic cholecystectomy. The patient was seen and examined by Dr. Parikh. The patient is agreeable with plan. MARY MUNOZ [id number]/[id number] #: [id number] MTDD
--- NOTE | 2018-09-19 15:36 | OP ---
Operative Report - Blank - Operative Report Date of Operation: 09/19/18 Note: Brief Operative Note Preop Dx: acute cholecystitis Postop Dx: same Procedure: laparoscopic cholecystectomy Anesthesia: GET Surgeon: Jl Electromechanic: MARY Lebron; DEBRA Loza Fluids: 1300 ml RL EBL: 50 ml Specimen: gallbladder Drains: none Findings: dictated
[2018-09-19] MEDS ORDERED: Levalbuterol 0.63MG/3ML NEB* UNIT OF USE INH ONE (16:07)
[2018-09-19] MEDS ORDERED: HYDROcodone/ACETAMIN 5-325 MG* 1 TAB PO PRN (16:13)
[2018-09-19] MEDS ORDERED: Naloxone* 0.4 MG/ML 1 ML VIAL IV PRN (16:13)
[2018-09-19] MEDS ORDERED: DiMENhydriNATE IV* 50 MG/ML VIAL IV PUSH PRN (16:13)
[2018-09-19] MEDS ORDERED: HYDROmorphone INJ1* 1 MG/ML SYRINGE IV PRN (16:13)
[2018-09-19] MEDS ORDERED: Levalbuterol 0.63MG/3ML NEB* UNIT OF USE INH PRN (16:13)
[2018-09-19] MEDS ORDERED: ceFAZolin 2 GM in NS 100 ml - ONCE (Pharmacy Admix) IVPB ONE (18:00)
[2018-09-19 18:40] VITALS: BP 117/71
--- NOTE | 2018-09-19 20:31 | OP ---
DATE OF OPERATION: 09/19/18 - ROOM #[id number] DATE OF : 65 ATTENDING SURGEON: Wade Parikh MD TWX OPERATOR: MARY Zuniga PRE-OP DIAGNOSIS: Cholecystitis. POST-OP DIAGNOSIS: Cholecystitis. PROCEDURE: Laparoscopic cholecystectomy. INDICATIONS FOR PROCEDURE: Cholecystitis. Risks including but not limited to bleeding, infection, injury to intraabdominal contents including the bowel, bile duct, liver and others were explained to the patient who seemed to understand and agreed to the procedure and all questions were answered. DESCRIPTION OF PROCEDURE: The patient was taken to the operating room, placed supine. Preoperative antibiotics had been given. After the successful induction of general endotracheal anesthesia, the abdomen was prepped and draped in sterile fashion. A time-out was performed. Correct patient, correct procedure identified. A 5-mm trocar was then placed in the subxiphoid position slightly to the right and under direct visualization of a camera using a bladeless Optiview trocar. Pneumoperitoneum was achieved at 15 mmHg. A camera was placed in the abdomen and the abdomen was scanned. There was no obvious injury from trocar placement. Some adhesions were seen down in the lower abdomen. Incision was made above the umbilicus to place a 12-mm trocar under direct visualization of the camera, bladeless. This was above some adhesions from a prior umbilical hernia repair. Two right-sided 5-mm trocars were placed under direct visualization of the camera avoiding his pain pump. No significant adhesions were noted on this side. The gallbladder appeared severely edematous and inflamed. The patient was placed in the reverse Trendelenburg position, tilted slightly towards his left. The fundus of the gallbladder was grasped and retracted up and over the liver. Gallbladder was distended and edematous some adhesions of omentum were gently peeled off the gallbladder exposing the infundibulum. The cystic duct was identified, isolated, clipped and divided. The cystic artery was identified, isolated, clipped and divided. The gallbladder was removed from the hepatic bed using a Bovie cautery hook and was placed into an endobag and removed through the supraumbilical port site. The right upper quadrant was irrigated and aspirated dry. EBL was approximately 50 cc for the case. Hemostasis was intact. Pneumoperitoneum was aspirated out of the abdomen and the trocars were removed. The skin was closed with Monocryl and glue. He tolerated the procedure well. He was extubated and taken to Recovery in stable condition. [id number]/[facility] #: [id number] ROSINA
== END 2018-09-19 18:35 | disposition home or self-care (01) ==
LOC: SSU 11:46
PROVIDERS: ADMIT Surgery; ATTEND Surgery
DX: K81.9 Cholecystitis, unspecified (principal); Z87.891 Personal history of nicotine dependence; Z79.82 Long term (current) use of aspirin; R10.9 Unspecified abdominal pain; I10 Essential (primary) hypertension; K21.9 Gastro-esophageal reflux disease without esophagitis
CPT/HCPCS: 88304; 96372; A9270-GY; G0378; J0330; J0690; J1100; J1170; J1240; J1885; J2250; J2405; J2704; J3010; J3490

== ENCOUNTER 2019-10-21 14:23 | Emergency (ER) | payer MEDICARE, OTHER ==
[2019-10-21] MEDS ORDERED: Morphine 4 MG/ML VIAL (1 ml) 4 MG/ML VIAL IV ONE (14:56)
--- NOTE | 2019-10-21 14:57 | ED ---
GI/ HPI - HPI Summary HPI Summary: 54 year old male presents with epigastric pain since Monday. He states that pain has increased. He admits to some chest pain which is feels like tightness and sharp and feels like how has had bronchitis. He admits to short of breath. He has a chronic cough from smoking that remains unchanged. He denies any history asthma or COPD. Pain feels similar to when he had his gallbladder out. He admits to belching and has not been passing much gas. He did have a bowel movement last night that was normal. No diarrhea. No nausea vomiting. Has history of a hernia and gallbladder removal. No history of pancreatitis. He did have some alcohol on Monday. Denies any urinary symptoms. No fever. He was at a gas station where person was tested positive for covid. He has a history of high blood pressure and sleep apnea. - History of Current Complaint Chief Complaint: EDChestPainROMI Time Seen by Provider: 10/21/19 14:32 Stated Complaint: CHEST PAIN PER PT Pain Intensity: 8 - Additional Pertinent History Primary Care Physician: BIRGIT - Allergy/Home Medications Allergies/Adverse Reactions: Allergies Allergy/AdvReac Type Severity Reaction Status Date / Time No Known Allergies Allergy Verified 10/21/19 13:42 Home Medications: Home Medications Morphine PUMP REFILL 25 mg INTRATHEC Q6M 05/14/12 [History Confirmed 10/21/19] Atorvastatin* [Lipitor 20 MG*] 20 mg PO DAILY 08/12/16 [History Confirmed ] Famotidine TAB* [Pepcid 20 MG TAB*] 20 mg PO BID 02/05/18 [History Confirmed ] metFORMIN* [Glucophage 1000 MG TAB *] 1,000 mg PO QAM 02/05/18 [History Confirmed 10/21/19] Al Hydrox/Mg Hydrox/Simet LIQ* [Maalox Plus*] 30 ml PO Q6H PRN #1 udc 10/21/19 [ Rx] Albuterol inh POWDER (NF) [Proair Respiclick] 2 puff INH Q4HR PRN 10/21/19 [ History Confirmed 10/21/19] Aspirin EC TAB* [Ecotrin EC Low Dose 81 MG*] 81 mg PO DAILY 10/21/19 [History Confirmed 10/21/19] Cyclobenzaprine (NF) [Cyclobenzaprine 5 MG (NF)] 5 mg PO TID PRN 10/21/19 [ History Confirmed 10/21/19] Fluticasone NASAL SPRAY 50MCG* [Flonase NASAL SPRAY 50MCG*] 2 spray BOTH NARES DAILY PRN 10/21/19 [History Confirmed 10/21/19] HydroCODONE/Acetamin 10/325 NF [K[place]ag 10/325 (NF)] 1 tab PO Q6H PRN 10/21/19 [ History Confirmed 10/21/19] Losartan TAB* [Cozaar TAB*] 100 mg PO DAILY 10/21/19 [History Confirmed 10/21/19 ] Metoprolol Succinate XL TAB* [Toprol XL TAB*] 50 mg PO DAILY 10/21/19 [History Confirmed 10/21/19] Multivitamins/Minerals TAB* [Theragran/minerals TAB*] 1 tab PO DAILY 10/21/19 [ History Confirmed 10/21/19] Omeprazole 20 mg PO DAILY #14 capsule. 10/21/19 [Rx] Sucralfate TAB* [Carafate*] 1 gm PO QID #56 tab 10/21/19 [Rx] amLODIPine TAB* [Norvasc 5 mg TAB*] 10 mg PO DAILY 10/21/19 [History Confirmed 10/21/19] buPROPion SR TAB* [Wellbutrin SR TAB*] 100 mg PO BID 10/21/19 [History Confirmed 10/21/19] PMH/Surg Hx/FS Hx/Imm Hx Endocrine/Hematology History: Reports: Hx Diabetes Denies: Hx Bone Marrow Disease, Hx Sickle Cell Disease, Hx Thyroid Disease, Hx Anemia Cardiovascular History: Reports: Hx Hypercholesterolemia, Hx Hypertension, Other Cardiovascular Problems/Disorders - 06/2015- SIRS- R/T ALCOHOL AND NARCOTIC WITHDRAWL Respiratory History: Reports: Hx Pneumonia, Hx Sleep Apnea - SURGERY DONE HERE 20 YRSAGO, DOES NOT USE CPAP CURRENTLY, Other Respiratory Problems/Disorders - HEAVY 35+ YR SMOKER, STATES HE SMOKES 6 CIGS/DAY CURRENTLY Denies: Hx Asthma, Hx Chronic Obstructive Pulmonary Disease (COPD) GI History: Reports: Other GI Disorders - 12/2013 VENTRAL/UMBILICAL HERNIA Denies: Hx Ulcer History: Denies: Hx Renal Disease, Other Problems/Disorders Musculoskeletal History: Reports: Hx Arthritis - OSTEOARTHRITIS LEFT KNEE, Hx Back Problems, Other Musculoskeletal History - FAILED BACK SYNDROME, CHRONIC PAIN Sensory History: Denies: Hx Cataracts, Hx Contacts or Glasses, Hx Glaucoma, Hx Hearing Aid Opthamlomology History: Denies: Hx Cataracts, Hx Contacts or Glasses, Hx Glaucoma Neurological History: Reports: Other Neuro Impairments/Disorders - INTRATHECAL MORPHINE PUMP CONNNECTED TO SPINE L5-S1 Psychiatric History: Reports: Hx Substance Abuse - 06/2015 HX OF ALCOHOL AND NARCOTIC WITHDRAWL, MS PUMP Denies: Hx Anxiety, Hx Attention Deficit Hyperactivity Disorder, Hx Post Traumatic Stress Disorder, Hx Inpatient Treatment, Hx Schizophrenia, Hx Suicide Attempt, Hx of Violent Episodes Against Others, Other Psychiatric Issues/ Disorders - Cancer History Cancer Type, 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S1[place] [facility] [place]. OBSTRUCTIVE SLEEP APNEA, NASAL POLYP , SEPTUM- 10/2000. VENTRAL/UMBILICAL HERNIA REPAIR- [place] [facility] [place] TOTAL KNEE REPLACEMENT X 2- [facility]. MORPHINE PUMP FOR BACK PAIN Hx Anesthesia Reactions: No - Immunization History Date of Influenza Vaccine: no Infectious Disease History: No Infectious Disease History: Denies: Hx Clostridium Difficile, Hx Hepatitis, Hx Human Immunodeficiency Virus (HIV), Hx of Known/Suspected MRSA, Hx Shingles, Hx Tuberculosis, History Other Infectious Disease, Traveled Outside the [place] in Last 30 Days - Family History Known Family History: Positive: Non-Contributory Family History: non contributory - Social History Alcohol Use: None Alcohol Amount: FEW DRINKS A WEEK Substance Use Type: Reports: None Substance Use Comment - Amount & Last Used: INTRATHECAL MS PUMP RIGHT SIDE Smoking Status (MU): Current Every Day Smoker Type: Cigarettes Amount Used/How Often: 1/2 PPD Length of Time of Smoking/Using Tobacco: 35 YRS Have You Smoked in the Last Year: Yes Review of Systems Negative: Fever Positive: Chest Pain Positive: Shortness Of Breath, Cough Positive: Abdominal Pain. Negative: Vomiting, Diarrhea, Nausea All Other Systems Reviewed And Are Negative: Yes Physical Exam Triage Information Reviewed: Yes Vital Signs On Initial Exam: Initial Vitals Temp Pulse Resp BP Pulse Ox 97.1 F 106 20 133/90 96 10/21/19 14:30 10/21/19 14:30 10/21/19 14:30 10/21/19 14:30 10/21/19 14:30 Vital Signs Reviewed: Yes Appearance: Positive: Well-Appearing Skin: Positive: Warm, Dry Head/Face: Positive: Normal Head/Face Inspection Eyes: Positive: Normal, Conjunctiva Clear Respiratory/Lung Sounds: Positive: Clear to Auscultation, Breath Sounds Present Cardiovascular: Positive: Normal, RRR Abdomen Description: Positive: Soft, Other: - tenderness epigastric region Bowel Sounds: Positive: Present Musculoskeletal: Positive: Normal Neurological: Positive: Normal Psychiatric: Positive: Normal Procedures - Sedation Patient Received Moderate/Deep Sedation with Procedure: No Diagnostics - Vital Signs Vital Signs Temp Pulse Resp BP Pulse Ox 10/21/19 14:30 97.1 F 106 20 133/90 96 - Laboratory Result Diagrams: 10/21/19 16:00 10/21/19 16:00 Lab Statement: Any lab studies that have been ordered have been reviewed, and results considered in the medical decision making process. - CT abd CT Interpretation Completed By: Radiologist Summary of CT Findings: 1. QUESTIONABLE GASTRITIS CENTERED ABOUT THE ANTRUM OF THE STOMACH WITH SUBTLE REGIONAL INFLAMMATION ABOVE. 2. POSTOPERATIVE CHANGES ABOVE. - EKG No standard instances Cardiac Rate: NL EKG Rhythm: Sinus Rhythm EKG Comparison: No Significant Change Summary of EKG Findings: sinus rhythm GIGU Course/Dx - Course Course Of Treatment: 54 year old male presents with epigastric pain since Monday. He states that pain has increased. He admits to some chest pain which is feels like tightness and sharp. He admits to short of breath. He has a chronic cough from smoking that remains unchanged. He denies any history asthma or COPD. Pain feels similar to when he had his gallbladder out. He admits to belching and has not been passing much gas. He did have a bowel movement last night that was normal. No diarrhea. No nausea vomiting. Has history of a hernia and gallbladder removal. No history of pancreatitis. He did have some alcohol on Monday. Denies any urinary symptoms. No fever. He was at a gas station where person was tested positive for covid. On exam lungs CTA. Tenderness epigastric region. chest xray shows no pneumonia. wbc normal. d -dimer neg. troponin .01. amylase and lipase normal. lfts elevated. CT abd shows gastritis. will place on omeprazole and carafate. tested for covid so will have patient isolate at home. told follow up with GI if no improvement. patient understand and agrees with plan. - Diagnoses Differential Diagnoses - Male: Bowel Obstruction, Gastritis, Pneumonia, Other - pancreatitis Provider Diagnoses: Gastritis, Shortness of breath - Critical Care Time Critical Care Statement: Critical care time is provided exclusive of any time spent performing procedures. Discharge ED - Sign-Out/Discharge Documenting (check all that apply): Patient Departure - Discharge Plan Condition: Good Disposition: HOME Prescriptions: Al Hydrox/Mg Hydrox/Simet LIQ* [Maalox Plus*] 30 ml PO Q6H PRN #1 udc PRN Reason: Dyspepsia Omeprazole 20 mg PO DAILY #14 capsule. Sucralfate TAB* [Carafate*] 1 gm PO QID #56 tab Patient Education Materials: Gastritis (ED) Forms: COVID-19 Tested & Isolation Referrals: Essie Cummings NP [Primary Care Provider] - Edin Pitts MD [Medical Doctor] - Additional Instructions: Take omeprazole once a day Take Maalox 30ml every 6 hours for epigastric pain as needed Take Carafate four times a day Take tyenlol every 6 hours for pain, avoid ibuprofen Avoid acidic foods Follow up with GI Return to ED if develop any new or worsening symptoms - Billing Disposition and Condition Condition: GOOD Disposition: Home - Attestation Statements Provider Attestation: I was available for consultation for this patient. I did not evaluate the patient or participate in any medical decision making or disposition decisions unless I am specifically named in the chart as having consulted on the patient. If I have consulted on the patient, please see my own ED note on the patient encounter. Omar Segovia MD
[2019-10-21] MEDS ORDERED: Iodixanol* (CONTRAST) 320 MG/ML 100 ML SDV IV ONE (15:04)
[2019-10-21 16:14] LABS: ABS Eosinophils 0.1 10^3/ul (0-0.6); ABS Lymphocytes 1.4 10^3/ul (1.0-4.8); ABS Monocytes 0.5 10^3/ul (0-0.8); ABS Neutrophils 4.5 10^3/ul (1.5-7.7); Hematocrit 48 % (42-52); Hemoglobin 16.6 g/dL (14.0-18.0); Lymphocyte % 20.9 %; Mean Corpuscular HGB Conc 35 g/dL (31-36); Mean Corpuscular Hemoglobin 35 pg (27-31); Mean Corpuscular Volume 101 fL (80-94); Mean Platelet Volume 8.7 fL (7.4-10.4); Platelet Count 144 10^3/uL (150-450); Red Blood Count 4.74 10^6 /uL (4.18-5.48); Red Cell Distribution Width 16 % (10-15); White Blood Count 6.6 10^3/uL (3.5-10.8)
[2019-10-21 16:32] LABS: Troponin I 0.01 ng/mL (<0.03)
[2019-10-21 16:35] LABS: Albumin/Globulin Ratio 1.3 (1-3); BUN/Creatinine Ratio 19.3 (8-20); C Reactive Protein 6.25 mg/L (<8.01); Calcium 9.3 mg/dL (8.6-10.3); EGFR African American 116.8 (>60); EGFR Non-African American 96.5 (>60); Globulin 3.2 g/dL (2-4); Potassium 3.7 mmol/L (3.5-5.0); Total Bilirubin 1.3 mg/dL (0.2-1.0); Total Protein 7.2 g/dL (6.4-8.9)
[2019-10-21] MEDS ORDERED: Pantoprazole IV* 40 MG IV ONE (17:51)
[2019-10-21] MEDS ORDERED: Al Hydrox/Mg Hydrox/Simet LIQ* 30 ML UDC PO ONE (17:51)
[2019-10-21] MEDS ORDERED: Lidocaine 2% VISCOUS* 15 ML UDC PO ONE (17:51)
[2019-10-21] MEDS ORDERED: Sucralfate TAB* 1 GM PO ONE (17:51)
[2019-10-21 18:20] VITALS: BP 154/102
== END 2019-10-21 18:25 | disposition home or self-care (01) ==
LOC: ED 14:23
DX: K29.70 Gastritis, unspecified, without bleeding (principal); R06.02 Shortness of breath; R07.9 Chest pain, unspecified; G47.30 Sleep apnea, unspecified; F17.210 Nicotine dependence, cigarettes, uncomplicated; R05 Cough; R10.9 Unspecified abdominal pain; Z79.82 Long term (current) use of aspirin; Z79.899 Other long term (current) drug therapy; E78.00 Pure hypercholesterolemia, unspecified; I10 Essential (primary) hypertension; Z86.79 Personal history of other diseases of the circulatory system
CPT/HCPCS: 36415; 74177; 80053; 82150; 83605; 83690; 83880; 84484; 85025; 85379; 86140; 87635; 93005; 96374; 96375; 99284; A9270-GY; J2270; Q9967; U0003